=== PATIENT | male | born 1945 | race African-American/Black ===

== ENCOUNTER 2017-03-05 01:49 | Inpatient (IN) | payer OTHER ==
[2017-03-05] VITALS (12 sets, daily range): BP systolic 0–120; BP diastolic 0–85
[~2017-03-05] VITALS: Ht 165.1 cm; Wt 61.0 kg
[2017-03-05 02:05] LABS: BASE EXCESS -10.4 mEq/L (-3 to +3); BICARBONATE 12.4 mEq/L (22-26); CARBOXY HGB 2.2 % (0-5); COMMENTS - BLOOD GASES C+A+; DEVICE 840 VENT; FI02 60 %; METHEMOGLOBIN 1.2 % (0-1.5); PCO2 20 mm Hg (35-45); PO2 235 mm Hg (80-100); SITE LR
[2017-03-05 02:06] LABS: MODE SPONT NIPPV; PEEP 5 CM/H20; PRES. SUPPORT 10 CM/H2O; TOTAL RESP RATE 54 resp/min
[2017-03-05 02:16] LABS: POTASSIUM 3.8 mEq/L (3.7-5.4)
[2017-03-05 02:37] LABS: ADD MIUA? YES; BILIRUBIN NEGATIVE; BLOOD LARGE; COLOR YELLOW ((YELLOW)); GLUCOSE (STRIP) NEGATIVE; KETONES NEGATIVE; LEUKOCYTES LARGE; NITRITE NEGATIVE; PROTEIN (STRIP) 100; SPECIFIC GRAVITY 1.005 (1.000-1.030); UROBILINOGEN 0.2 MG/DL (0.2-1.0)
[2017-03-05 02:40] LABS: INTER. NORMALIZED RATIO 1.4; PROTHROMBIN TIME 14.3 (9.2-11.2); PTT 26.9 (25-32)
[2017-03-05 02:42] LABS: CHLORIDE 106 mEq/L (99-109); EOSINOPHIL (%) 0 % (0-5); HEMATOCRIT 35.9 % (38.0-50.0); IMMATURE GRANULOCYTE (%) 0.4 % (0.0-0.7); IMMATURE GRANULOCYTE COUNT 0.1 K/uL; INSTRUMENT ABS NEUTROPHIL CT 19.1 K/uL; LYMPHOCYTE COUNT 1.3 K/uL (1.0-2.8); MCH 21.9 PG (29.0-34.0); MCHC 31.5 G/DL (30.0-36.0); MCV 69.7 FL (86-99); MONOCYTE (%) 1.2 % (3-12); MONOCYTE COUNT 0.3 K/uL (0-0.8); NEUTROPHIL (%) 91.8 % (45-76); NEUTROPHIL COUNT 19.1 K/uL (1.8-6.4); NRBC (%) 0.1 /100 WBC (0-0); PLATELET COUNT 319 K/uL (156-360); RBC DIS.WIDTH-CV 22.4 % (11.8-14.6); RBC DIS.WIDTH-SD 52.1 % (39-53); RED BLOOD COUNT 5.15 M/uL (4.00-5.50); SODIUM 140 mEq/L (136-147); WHITE BLOOD COUNT 20.8 K/uL (4.1-10.2)
[2017-03-05 02:44] LABS: GLUCOSE 136 mg/dL (70-99)
[2017-03-05 02:45] LABS: ANION GAP 21 MEQ/L (2-14)
[2017-03-05 02:46] LABS: TOTAL BILIRUBIN 1.2 mg/dL (0.0-1.0)
[2017-03-05 02:47] LABS: ALKALINE PHOSPHATASE 116 IU/L (3-129)
[2017-03-05 02:48] LABS: GFR ESTIMATE (CALCULATED) > 59 mL/min/
[2017-03-05 02:49] LABS: UREA NITROGEN (BUN) 9 mg/dL (9-23)
[2017-03-05 02:51] LABS: LIPASE 31 U/L (1.0-51.0)
[2017-03-05 02:57] LABS: TROP-I INTERPRETATION NEGATIVE; TROPONIN-I 0.06 ng/mL (0.0-0.30)
[2017-03-05 02:57] LABS: EPITHELIAL CELLS 1+ /HPF; MUCUS NONE SEEN /LPF; RED BLOOD CELLS TNTC /HPF (0-5); WHITE BLOOD CELLS 30-40 /HPF (0-5)
[2017-03-05 02:58] LABS: BACTERIA 2+ /HPF; UCUL ADDED? YES
[2017-03-05 06:20] LABS: HEMATOCRIT 28.9 % (38.0-50.0); MCH 22.2 PG (29.0-34.0); MCHC 33.6 G/DL (30.0-36.0); MCV 66.3 FL (86-99); NRBC (%) 0.2 /100 WBC (0-0); PLATELET COUNT 243 K/uL (156-360); RBC DIS.WIDTH-CV 20.9 % (11.8-14.6); RBC DIS.WIDTH-SD 46.6 % (39-53); RED BLOOD COUNT 4.36 M/uL (4.00-5.50); WHITE BLOOD COUNT 18.6 K/uL (4.1-10.2)
[2017-03-05 06:35] LABS: INTER. NORMALIZED RATIO 1.6; PROTHROMBIN TIME 16.1 (9.2-11.2)
[2017-03-05 06:43] LABS: TROP-I INTERPRETATION NEGATIVE; TROPONIN-I 0.08 ng/mL (0.0-0.30)
[2017-03-05 06:47] LABS: METH RESISTANT S AUREUS PCR NEGATIVE (NEGATIVE)
[2017-03-05 06:50] LABS: PROBE CHECK PASS; SPECIMEN PROCESSING CONTROL PASS
[2017-03-05] MEDS ORDERED: NICODERM CQ1 EAC2 TD (10:45)
[2017-03-05] MEDS ORDERED: ELIQUIS5 MG PO (10:46)
[2017-03-05] MEDS ORDERED: FLOMAX0.4 MG PO (10:46)
[2017-03-05] MEDS ORDERED: THIAMINE HCL100 MG PO (10:47)
[2017-03-05] MEDS ORDERED: LASIX40 MG PO (10:48)
[2017-03-05] MEDS ORDERED: METOPROLOL TART25 MG PO (10:48)
[2017-03-05] MEDS ORDERED: VITAMIN D31000 UNIT PO (10:48)
[2017-03-05] MEDS ORDERED: LIPITOR40 MG PO (10:55)
[2017-03-05] MEDS ORDERED: NITROSTAT0.4 MG SL (10:55)
[2017-03-05 11:01] LABS: TROP-I INTERPRETATION NEGATIVE; TROPONIN-I 0.08 ng/mL (0.0-0.30)
[2017-03-05 11:05] LABS: INTER. NORMALIZED RATIO 1.6
[2017-03-05 11:15] LABS: PTT 93.7 (25-32)
[2017-03-06] VITALS (8 sets, daily range): BP systolic 0–133; BP diastolic 0–82
[2017-03-06 06:28] LABS: HEMATOCRIT 28.9 % (38.0-50.0); MCH 21.9 PG (29.0-34.0); MCHC 32.9 G/DL (30.0-36.0); MCV 66.7 FL (86-99); PLATELET COUNT 234 K/uL (156-360); RBC DIS.WIDTH-CV 21.2 % (11.8-14.6); RBC DIS.WIDTH-SD 47.3 % (39-53); RED BLOOD COUNT 4.33 M/uL (4.00-5.50)
[2017-03-06 06:48] LABS: ALKALINE PHOSPHATASE 73 IU/L (3-129); ANION GAP 13 MEQ/L (2-14); CHLORIDE 105 MEQ/L (99-109); GFR ESTIMATE (CALCULATED) > 59 mL/min/; GLUCOSE 139 mg/dL (70-99); POTASSIUM 3.5 MEQ/L (3.7-5.4); SAMPLE HEMOLYSIS CHECK 0; SAMPLE ICTERIC CHECK 0; SAMPLE LIPEMIA CHECK 0; SODIUM 139 MEQ/L (136-147); TOTAL BILIRUBIN 1.2 MG/DL (0.0-1.0); UREA NITROGEN (BUN) 18 mg/dL (9-23)
[2017-03-07 03:22] VITALS: BP 142/96
[2017-03-07 07:23] LABS: EOSINOPHIL (%) 1.1 % (0-5); EOSINOPHIL COUNT 0.1 K/uL (0-0.3); HEMATOCRIT 30.4 % (38.0-50.0); IMMATURE GRANULOCYTE (%) 0.5 % (0.0-0.7); INSTRUMENT ABS NEUTROPHIL CT 4.2 K/uL; LYMPHOCYTE COUNT 1.4 K/uL (1.0-2.8); MCH 22.5 PG (29.0-34.0); MCHC 33.2 G/DL (30.0-36.0); MCV 67.7 FL (86-99); MONOCYTE (%) 9.3 % (3-12); MONOCYTE COUNT 0.6 K/uL (0-0.8); NEUTROPHIL (%) 67.1 % (45-76); NEUTROPHIL COUNT 4.2 K/uL (1.8-6.4); NRBC (%) 0.5 /100 WBC (0-0); PLATELET COUNT 245 K/uL (156-360); RBC DIS.WIDTH-SD 49.1 % (39-53); RED BLOOD COUNT 4.49 M/uL (4.00-5.50)
[2017-03-07 07:30] LABS: WHITE BLOOD COUNT 6.2 K/uL (4.1-10.2)
[2017-03-07 07:38] LABS: ALKALINE PHOSPHATASE 89 IU/L (3-129); ANION GAP 13 MEQ/L (2-14); CHLORIDE 106 MEQ/L (99-109); GFR ESTIMATE (CALCULATED) > 59 mL/min/; GLUCOSE 170 mg/dL (70-99); POTASSIUM 3.6 MEQ/L (3.7-5.4); SAMPLE HEMOLYSIS CHECK 0; SAMPLE ICTERIC CHECK 0; SAMPLE LIPEMIA CHECK 0; SODIUM 140 MEQ/L (136-147); UREA NITROGEN (BUN) 15 mg/dL (9-23)
[2017-03-07 07:48] LABS: TOTAL BILIRUBIN 0.7 MG/DL (0.0-1.0)
[2017-03-07 09:06] VITALS: BP 124/71
[2017-03-07 12:32] VITALS: BP 142/86
[2017-03-07 16:00] VITALS: BP 123/68
[2017-03-07 22:00] VITALS: BP 126/82
[2017-03-08 00:48] VITALS: BP 113/79
[2017-03-08 05:05] VITALS: BP 126/81
[2017-03-08 07:13] LABS: ANION GAP 11 MEQ/L (2-14); CHLORIDE 105 MEQ/L (99-109); GFR ESTIMATE (CALCULATED) > 59 mL/min/; GLUCOSE 130 mg/dL (70-99); POTASSIUM 3.9 MEQ/L (3.7-5.4); SAMPLE HEMOLYSIS CHECK 0; SAMPLE ICTERIC CHECK 0; SAMPLE LIPEMIA CHECK 0; SODIUM 137 MEQ/L (136-147); UREA NITROGEN (BUN) 11 mg/dL (9-23)
[2017-03-08 07:43] LABS: EOSINOPHIL (%) 2.7 % (0-5); EOSINOPHIL COUNT 0.2 K/uL (0-0.3); HEMATOCRIT 31.2 % (38.0-50.0); IMMATURE GRANULOCYTE (%) 0.3 % (0.0-0.7); INSTRUMENT ABS NEUTROPHIL CT 3.6 K/uL; LYMPHOCYTE COUNT 1.6 K/uL (1.0-2.8); MCH 21.8 PG (29.0-34.0); MCHC 32.1 G/DL (30.0-36.0); MONOCYTE (%) 9.2 % (3-12); MONOCYTE COUNT 0.6 K/uL (0-0.8); NEUTROPHIL (%) 59.6 % (45-76); NEUTROPHIL COUNT 3.6 K/uL (1.8-6.4); NRBC (%) 0.5 /100 WBC (0-0); PLATELET COUNT 254 K/uL (156-360); RBC DIS.WIDTH-CV 22.6 % (11.8-14.6); RED BLOOD COUNT 4.59 M/uL (4.00-5.50)
[2017-03-08 08:11] VITALS: BP 123/80
[2017-03-08 16:00] VITALS: BP 125/79
[2017-03-08 22:00] VITALS: BP 138/90
[2017-03-09 00:51] VITALS: BP 131/92
[2017-03-09 05:08] VITALS: BP 128/82
[2017-03-09 07:00] VITALS: BP 132/86
[2017-03-09 07:09] LABS: ANION GAP 8 MEQ/L (2-14); CHLORIDE 104 MEQ/L (99-109); GFR ESTIMATE (CALCULATED) > 59 mL/min/; GLUCOSE 135 mg/dL (70-99); POTASSIUM 3.9 MEQ/L (3.7-5.4); SAMPLE HEMOLYSIS CHECK 0; SAMPLE ICTERIC CHECK 0; SAMPLE LIPEMIA CHECK 0; SODIUM 136 MEQ/L (136-147); UREA NITROGEN (BUN) 9 mg/dL (9-23)
[2017-03-09 07:28] LABS: HEMATOCRIT 30.9 % (38.0-50.0); MCH 22.1 PG (29.0-34.0); MCHC 32.4 G/DL (30.0-36.0); MCV 68.4 FL (86-99); NRBC (%) 0.3 /100 WBC (0-0); PLAT.SUFFICIENCY ADEQUATE; PLATELET COUNT 260 K/uL (156-360); RBC DIS.WIDTH-CV 22.4 % (11.8-14.6); RBC DIS.WIDTH-SD 51.1 % (39-53); RED BLOOD COUNT 4.52 M/uL (4.00-5.50); WHITE BLOOD COUNT 6.4 K/uL (4.1-10.2)
[2017-03-09 12:08] VITALS: BP 121/82
[2017-03-09 16:39] VITALS: BP 132/81
[2017-03-09 20:40] VITALS: BP 106/70
[2017-03-10] VITALS (7 sets, daily range): BP systolic 114–142; BP diastolic 73–90
[2017-03-10 06:27] LABS: MCH 21.7 PG (29.0-34.0); MCHC 31.9 G/DL (30.0-36.0); PLATELET COUNT 259 K/uL (156-360); RBC DIS.WIDTH-CV 22.9 % (11.8-14.6); RBC DIS.WIDTH-SD 51.2 % (39-53); RED BLOOD COUNT 4.56 M/uL (4.00-5.50)
[2017-03-10 07:35] LABS: ANION GAP 12 MEQ/L (2-14); CHLORIDE 104 MEQ/L (99-109); GFR ESTIMATE (CALCULATED) > 59 mL/min/; GLUCOSE 176 mg/dL (70-99); POTASSIUM 3.6 MEQ/L (3.7-5.4); SAMPLE HEMOLYSIS CHECK 0; SAMPLE ICTERIC CHECK 0; SAMPLE LIPEMIA CHECK 0; SODIUM 137 MEQ/L (136-147); UREA NITROGEN (BUN) 10 mg/dL (9-23)
[2017-03-11 00:45] VITALS: BP 110/68
[2017-03-11 04:04] VITALS: BP 115/70
[2017-03-11 06:49] LABS: ANION GAP 11 MEQ/L (2-14); CHLORIDE 104 MEQ/L (99-109); GFR ESTIMATE (CALCULATED) > 59 mL/min/; GLUCOSE 135 mg/dL (70-99); SAMPLE HEMOLYSIS CHECK 0; SAMPLE ICTERIC CHECK 0; SAMPLE LIPEMIA CHECK 0; SODIUM 139 MEQ/L (136-147); UREA NITROGEN (BUN) 11 mg/dL (9-23)
[2017-03-11 07:29] LABS: HEMATOCRIT 33.3 % (38.0-50.0); MCH 22.1 PG (29.0-34.0); MCHC 32.4 G/DL (30.0-36.0); MCV 68.1 FL (86-99); PLATELET COUNT 277 K/uL (156-360); RBC DIS.WIDTH-CV 22.5 % (11.8-14.6); RED BLOOD COUNT 4.89 M/uL (4.00-5.50); WHITE BLOOD COUNT 6.5 K/uL (4.1-10.2)
[2017-03-11 07:30] VITALS: BP 115/81
[2017-03-11 11:20] VITALS: BP 116/74
[2017-03-11 19:35] VITALS: BP 133/88
[2017-03-11 23:51] VITALS: BP 125/84
[2017-03-12 03:55] VITALS: BP 128/88
[2017-03-12 06:54] LABS: ANION GAP 10 MEQ/L (2-14); CHLORIDE 105 MEQ/L (99-109); GFR ESTIMATE (CALCULATED) > 59 mL/min/; GLUCOSE 137 mg/dL (70-99); POTASSIUM 4.1 MEQ/L (3.7-5.4); SAMPLE HEMOLYSIS CHECK 0; SAMPLE ICTERIC CHECK 0; SAMPLE LIPEMIA CHECK 0; SODIUM 140 MEQ/L (136-147); UREA NITROGEN (BUN) 13 mg/dL (9-23)
[2017-03-12 08:00] VITALS: BP 116/79
[2017-03-12 11:30] VITALS: BP 109/105
[2017-03-12] MEDS ORDERED: METRONIDAZOLE500 MG PO (11:58)
[2017-03-12] MEDS ORDERED: FINASTERIDE5 MG PO (12:00)
[2017-03-12] MEDS ORDERED: ASPIR-LOW81 MG PO (12:01)
[2017-03-12] MEDS ORDERED: XARELTO15 MG PO (12:22)
== END 2017-03-12 15:48 | disposition home health service (06) | DRG 871 ==
LOC: EME → EDBD 01:49 → EME 01:49 → 4EAST 03:53 → 4WEST 03:53 → EDOF 03:53 → 4WEST 04:40 → 4EAST 03-06 19:29
PROVIDERS: Emergency Medicine; Internal Medicine
DX: A40.9 Streptococcal sepsis, unspecified (principal); J96.00 Acute respiratory failure, unspecified whether with hypoxia or hypercapnia; I26.99 Other pulmonary embolism without acute cor pulmonale; J90 Pleural effusion, not elsewhere classified; B95.5 Unspecified streptococcus as the cause of diseases classified elsewhere; R33.9 Retention of urine, unspecified; N40.1 Benign prostatic hyperplasia with lower urinary tract symptoms; N39.0 Urinary tract infection, site not specified; I50.9 Heart failure, unspecified; I27.2 Other secondary pulmonary hypertension; T44.6X6A Underdosing of alpha-adrenoreceptor antagonists, initial encounter; Z91.128 Patient's intentional underdosing of medication regimen for other reason; J44.9 Chronic obstructive pulmonary disease, unspecified; Z86.718 Personal history of other venous thrombosis and embolism; Z79.01 Long term (current) use of anticoagulants; F17.210 Nicotine dependence, cigarettes, uncomplicated; N41.9 Inflammatory disease of prostate, unspecified; J18.0 Bronchopneumonia, unspecified organism; E87.2 Acidosis; E87.6 Hypokalemia; D64.9 Anemia, unspecified
CPT/HCPCS: 36600; 71010; 71275; 74177; 80047; 80048; 80053; 81003; 82803; 83605; 83690; 84484; 85025; 85027; 85610; 85730; 87040; 87076; 87086; 87106; 87185; 87641; 87801; 93005; 93306; 93970; 94002; 94010; 94640; 94640 76; 94760; 94799; 99202; 99281; 99285; J0692; J0696; J1940; J1956; J3260; J3370; J7050

== ENCOUNTER 2017-03-24 09:32 | Inpatient (IN) | payer OTHER ==
[~2017-03-24] VITALS: Ht 165.1 cm; Wt 55.6 kg
[~2017-03-24 09:32] MED LIST: ASPIR-LOW81 MG PO; ELIQUIS5 MG PO; FINASTERIDE5 MG PO; FLOMAX0.4 MG PO; LASIX40 MG PO; LIPITOR40 MG PO; METOPROLOL TART25 MG PO; METRONIDAZOLE500 MG PO; NICODERM CQ1 EAC2 TD; NITROSTAT0.4 MG SL; THIAMINE HCL100 MG PO; VITAMIN D31000 UNIT PO; XARELTO15 MG PO
[2017-03-24 10:34] LABS: CHLORIDE 109 mEq/L (99-109); SODIUM 137 mEq/L (136-147)
[2017-03-24 10:36] LABS: GLUCOSE 108 mg/dL (70-99)
[2017-03-24 10:37] LABS: ANION GAP 13 MEQ/L (2-14)
[2017-03-24 10:38] LABS: POTASSIUM 5.5 mEq/L (3.7-5.4)
[2017-03-24 10:40] LABS: GFR ESTIMATE (CALCULATED) > 59 mL/min/; UREA NITROGEN (BUN) 16 mg/dL (9-23)
[2017-03-24 10:40] LABS: HEMATOCRIT 36.5 % (38.0-50.0); MCH 22.3 PG (29.0-34.0); MCHC 32.3 G/DL (30.0-36.0); MCV 69.1 FL (86-99); RBC DIS.WIDTH-CV 23.3 % (11.8-14.6); RBC DIS.WIDTH-SD 53.1 % (39-53); RED BLOOD COUNT 5.28 M/uL (4.00-5.50); WHITE BLOOD COUNT 5.3 K/uL (4.1-10.2)
[2017-03-24 10:44] LABS: TROP-I INTERPRETATION NEGATIVE; TROPONIN-I 0.05 ng/mL (0.0-0.30)
[2017-03-24 11:11] LABS: PLAT.SUFFICIENCY ADEQUATE; PLATELET COUNT 283 K/uL (156-360)
[2017-03-24] MEDS ORDERED: XARELTO15 MG PO (12:06)
[2017-03-24 12:09] LABS: INTER. NORMALIZED RATIO 1.6; PROTHROMBIN TIME 16.2 (9.2-11.2); PTT 32.1 (25-32)
[2017-03-24 14:00] VITALS: BP 131/88
[2017-03-24 15:59] VITALS: BP 105/76
[2017-03-24 16:15] LABS: TROP-I INTERPRETATION NEGATIVE; TROPONIN-I 0.06 ng/mL (0.0-0.30)
[2017-03-24 17:35] LABS: AMPHETAMINES QUANT VALUE 0 NG/ML; BARBITUATES QUANT VALUE 0 NG/ML; BENZODIAZEPINES QUANT VALUE 0 NG/ML; BENZODIAZEPINES, URINE SCREEN Negative (200 ng/mL); MARIJUANA QUANT VALUE 0 NG/ML; OPIATES QUANTITATIVE VALUE 0 NG/ML; PHENCYCLIDINE QUANT VALUE 0 NG/ML
[2017-03-24 21:51] LABS: TROP-I INTERPRETATION NEGATIVE; TROPONIN-I 0.06 ng/mL (0.0-0.30)
[2017-03-24 23:22] VITALS: BP 104/77
[2017-03-25] VITALS (9 sets, daily range): BP systolic 86–114; BP diastolic 53–83
[2017-03-25 07:14] LABS: ANION GAP 12 MEQ/L (2-14); CHLORIDE 107 MEQ/L (99-109); GFR ESTIMATE (CALCULATED) > 59 mL/min/; GLUCOSE 85 mg/dL (70-99); POTASSIUM 4.9 MEQ/L (3.7-5.4); SAMPLE HEMOLYSIS CHECK 0; SAMPLE ICTERIC CHECK 0; SAMPLE LIPEMIA CHECK 0; SODIUM 136 MEQ/L (136-147); UREA NITROGEN (BUN) 19 mg/dL (9-23)
[2017-03-26 03:50] VITALS: BP 94/60
[2017-03-26 07:33] VITALS: BP 102/65
[2017-03-26 07:46] LABS: ANION GAP 11 MEQ/L (2-14); CHLORIDE 105 MEQ/L (99-109); GFR ESTIMATE (CALCULATED) > 59 mL/min/; GLUCOSE 103 mg/dL (70-99); SAMPLE HEMOLYSIS CHECK 0; SAMPLE ICTERIC CHECK 0; SAMPLE LIPEMIA CHECK 0; SODIUM 134 MEQ/L (136-147); UREA NITROGEN (BUN) 22 mg/dL (9-23)
[2017-03-26 11:09] VITALS: BP 101/68
[2017-03-26 15:09] VITALS: BP 90/64
[2017-03-26 17:44] LABS: ADD MIUA? YES; BILIRUBIN NEGATIVE; BLOOD MODERATE; COLOR YELLOW ((YELLOW)); GLUCOSE (STRIP) NEGATIVE; KETONES NEGATIVE; LEUKOCYTES MODERATE; NITRITE NEGATIVE; PROTEIN (STRIP) 30; UROBILINOGEN 0.2 MG/DL (0.2-1.0)
[2017-03-26 17:52] LABS: BACTERIA RARE /HPF; EPITHELIAL CELLS NONE SEEN /HPF; HYALINE CASTS 0-5 /LPF; MUCUS TRACE /LPF; RED BLOOD CELLS 20-30 /HPF (0-5); UCUL ADDED? NO
[2017-03-26 20:06] VITALS: BP 92/66
[2017-03-26 23:53] VITALS: BP 101/67
[2017-03-27 03:44] VITALS: BP 119/67
[2017-03-27 05:51] LABS: MCH 22.2 PG (29.0-34.0); MCHC 33.1 G/DL (30.0-36.0); MCV 67.3 FL (86-99); PLATELET COUNT 252 K/uL (156-360); RBC DIS.WIDTH-SD 49.8 % (39-53); RED BLOOD COUNT 5.35 M/uL (4.00-5.50)
[2017-03-27 05:52] LABS: WHITE BLOOD COUNT 6.9 K/uL (4.1-10.2)
[2017-03-27 05:53] LABS: ANION GAP 11 MEQ/L (2-14); CHLORIDE 102 MEQ/L (99-109); GFR ESTIMATE (CALCULATED) > 59 mL/min/; GLUCOSE 145 mg/dL (70-99); POTASSIUM 3.9 MEQ/L (3.7-5.4); SAMPLE HEMOLYSIS CHECK 0; SAMPLE ICTERIC CHECK 0; SAMPLE LIPEMIA CHECK 0; SODIUM 133 MEQ/L (136-147); UREA NITROGEN (BUN) 22 mg/dL (9-23)
[2017-03-27 08:23] VITALS: BP 146/81
[2017-03-27 12:18] VITALS: BP 149/92
[2017-03-27 15:58] VITALS: BP 132/80
[2017-03-27 20:43] VITALS: BP 99/68
[2017-03-27 22:35] VITALS: BP 92/65
[2017-03-28 04:10] VITALS: BP 85/52
[2017-03-28 08:00] VITALS: BP 130/81
[2017-03-28] MEDS ORDERED: DIGOXIN125 MCG PO (11:01)
[2017-03-28] MEDS ORDERED: XARELTO20 MG PO (11:02)
[2017-03-28] MEDS ORDERED: LISINOPRIL2.5 MG PO (11:02)
[2017-03-28 11:17] VITALS: BP 142/76
[2017-03-28 13:30] LABS: ADD MIUA? YES; BILIRUBIN NEGATIVE; BLOOD LARGE; COLOR AMBER ((YELLOW)); GLUCOSE (STRIP) NEGATIVE; KETONES NEGATIVE; LEUKOCYTES MODERATE; NITRITE NEGATIVE; PROTEIN (STRIP) 100; UROBILINOGEN 0.2 MG/DL (0.2-1.0)
[2017-03-28 13:48] LABS: RED BLOOD CELLS 20-30 /HPF (0-5)
[2017-03-28 13:49] LABS: CASTS PRESENT /LPF; EPITHELIAL CELLS 1+ /HPF; MUCUS NONE SEEN /LPF; UCUL ADDED? YES; WHITE BLOOD CELLS 30-40 /HPF (0-5)
[2017-03-28 13:50] LABS: BACTERIA 3+ /HPF
== END 2017-03-28 13:30 | disposition home or self-care (01) | DRG 292 ==
LOC: EME 09:32 → EDOF 11:46 → 5WEST 11:46 → EDOF 11:46 → 5WEST 12:39 → 5SOUTH 03-25 13:34 → 5WEST 03-25 13:34 → 5SOUTH 03-25 16:06
PROVIDERS: Emergency Medicine; Internal Medicine; Internal Medicine Cardiovascular Disease; Nurse Practitioner Adult Health
DX: I50.23 Acute on chronic systolic (congestive) heart failure (principal); I42.0 Dilated cardiomyopathy; E87.2 Acidosis; F17.210 Nicotine dependence, cigarettes, uncomplicated; R33.9 Retention of urine, unspecified; I27.2 Other secondary pulmonary hypertension; I44.4 Left anterior fascicular block; I51.7 Cardiomegaly; R00.0 Tachycardia, unspecified; J44.9 Chronic obstructive pulmonary disease, unspecified; N40.0 Benign prostatic hyperplasia without lower urinary tract symptoms; K59.00 Constipation, unspecified; F10.10 Alcohol abuse, uncomplicated; Z86.718 Personal history of other venous thrombosis and embolism; Z86.711 Personal history of pulmonary embolism; Z81.1 Family history of alcohol abuse and dependence; Z88.0 Allergy status to penicillin; Z80.0 Family history of malignant neoplasm of digestive organs; Z09 Encounter for follow-up examination after completed treatment for conditions other than malignant neoplasm
CPT/HCPCS: 71020; 80048; 80306 90; 81003; 83880; 84484; 85027; 85610; 85730; 87086; 93005; 99281; 99285; G0103; G0378; J0696; J1940; J2270; J7040; J7050

== ENCOUNTER 2017-04-27 17:15 | Inpatient (IN) | payer OTHER ==
[~2017-04-27] VITALS: Ht 165.1 cm; Wt 49.0 kg
[~2017-04-27 17:15] MED LIST changes: +DIGOXIN125 MCG PO; +LISINOPRIL2.5 MG PO; +XARELTO20 MG PO
[2017-04-27 19:09] LABS: CHLORIDE 104 mEq/L (99-109); POTASSIUM 5.2 mEq/L (3.7-5.4); SODIUM 137 mEq/L (136-147)
[2017-04-27 19:11] LABS: GLUCOSE 100 mg/dL (70-99)
[2017-04-27 19:12] LABS: ANION GAP 21 MEQ/L (2-14)
[2017-04-27 19:13] LABS: TOTAL BILIRUBIN 0.7 mg/dL (0.0-1.0)
[2017-04-27 19:15] LABS: ALKALINE PHOSPHATASE 64 IU/L (3-129); GFR ESTIMATE (CALCULATED) 8 mL/min/
[2017-04-27 19:21] LABS: EOSINOPHIL (%) 0.1 % (0-5); HEMATOCRIT 40.8 % (38.0-50.0); IMMATURE GRANULOCYTE (%) 0.5 % (0.0-0.7); IMMATURE GRANULOCYTE COUNT 0.1 K/uL; INSTRUMENT ABS NEUTROPHIL CT 8.7 K/uL; MCH 21.9 PG (29.0-34.0); MCHC 33.6 G/DL (30.0-36.0); MCV 65.2 FL (86-99); MONOCYTE (%) 8.4 % (3-12); MONOCYTE COUNT 0.9 K/uL (0-0.8); NEUTROPHIL (%) 81.5 % (45-76); NEUTROPHIL COUNT 8.7 K/uL (1.8-6.4); PLATELET COUNT 273 K/uL (156-360); RBC DIS.WIDTH-CV 21.8 % (11.8-14.6); RBC DIS.WIDTH-SD 45.7 % (39-53); RED BLOOD COUNT 6.26 M/uL (4.00-5.50); TROP-I INTERPRETATION NEGATIVE; TROPONIN-I 0.21 ng/mL (0.0-0.30); WHITE BLOOD COUNT 10.6 K/uL (4.1-10.2)
[2017-04-27 19:33] LABS: UREA NITROGEN (BUN) 151 mg/dL (9-23)
[2017-04-27 19:51] LABS: LIPASE 125 U/L (1.0-51.0)
[2017-04-27] MEDS ORDERED: FINASTERIDE5 MG PO (19:59)
[2017-04-27] MEDS ORDERED: METRONIDAZOLE500 MG PO (19:59)
[2017-04-27] MEDS ORDERED: TAMSULOSIN HCL0.4 MG PO (19:59)
[2017-04-27] MEDS ORDERED: AMOX TR-K CLV1 EAC4 PO (20:00)
[2017-04-27] MEDS ORDERED: URIBEL CAPSULE1 EACH PO (20:00)
[2017-04-27] MEDS ORDERED: DAILY VITE1 EAC1 PO (20:01)
[2017-04-27 20:45] LABS: ADD MIUA? YES; BILIRUBIN NEGATIVE; BLOOD MODERATE; COLOR YELLOW ((YELLOW)); GLUCOSE (STRIP) NEGATIVE; KETONES NEGATIVE; LEUKOCYTES LARGE; NITRITE NEGATIVE; PROTEIN (STRIP) NEGATIVE; SPECIFIC GRAVITY 1.008 (1.000-1.030); UROBILINOGEN 0.2 MG/DL (0.2-1.0)
[2017-04-27 21:09] LABS: BACTERIA RARE /HPF; EPITHELIAL CELLS NONE SEEN /HPF; MUCUS TRACE /LPF; RED BLOOD CELLS 0-5 /HPF (0-5); UCUL ADDED? NO; WHITE BLOOD CELLS 30-40 /HPF (0-5); WHITE BLOOD CELLS CLUMP OCC /HPF (0-5)
[2017-04-28 00:56] LABS: INTER. NORMALIZED RATIO 1.4; PROTHROMBIN TIME 14.7 (9.2-11.2)
[2017-04-28 05:45] LABS: SODIUM 142 mEq/L (136-147)
[2017-04-28 05:46] LABS: GLUCOSE 109 mg/dL (70-99)
[2017-04-28 05:48] LABS: ANION GAP 13 MEQ/L (2-14)
[2017-04-28 05:51] LABS: HEMATOCRIT 34.4 % (38.0-50.0); MCV 64.5 FL (86-99); PLATELET COUNT 252 K/uL (156-360); RBC DIS.WIDTH-CV 21.1 % (11.8-14.6); RBC DIS.WIDTH-SD 43.9 % (39-53); RED BLOOD COUNT 5.33 M/uL (4.00-5.50); WHITE BLOOD COUNT 7.3 K/uL (4.1-10.2)
[2017-04-28 05:54] LABS: TROP-I INTERPRETATION NEGATIVE
[2017-04-28 06:00] LABS: GFR ESTIMATE (CALCULATED) 14 mL/min/; UREA NITROGEN (BUN) 116 mg/dL (9-23)
[2017-04-28 06:01] LABS: CHLORIDE 115 mEq/L (99-109)
[2017-04-28 13:23] VITALS: BP 91/55
[2017-04-28 14:56] VITALS: BP 95/62
[2017-04-28 21:09] VITALS: BP 105/65
[2017-04-29 00:23] VITALS: BP 100/61
[2017-04-29 06:46] LABS: EOSINOPHIL (%) 2.2 % (0-5); EOSINOPHIL COUNT 0.1 K/uL (0-0.3); HEMATOCRIT 32.2 % (38.0-50.0); IMMATURE GRANULOCYTE (%) 0.5 % (0.0-0.7); INSTRUMENT ABS NEUTROPHIL CT 4.2 K/uL; MCH 21.5 PG (29.0-34.0); MCV 67.4 FL (86-99); MONOCYTE COUNT 0.9 K/uL (0-0.8); NEUTROPHIL (%) 66.4 % (45-76); NEUTROPHIL COUNT 4.2 K/uL (1.8-6.4); PLATELET COUNT 223 K/uL (156-360); RBC DIS.WIDTH-CV 21.5 % (11.8-14.6); RBC DIS.WIDTH-SD 47.3 % (39-53); RED BLOOD COUNT 4.78 M/uL (4.00-5.50); WHITE BLOOD COUNT 6.4 K/uL (4.1-10.2)
[2017-04-29 07:03] LABS: ANION GAP 11 MEQ/L (2-14); CHLORIDE 114 MEQ/L (99-109); GLUCOSE 99 mg/dL (70-99); POTASSIUM 4.4 MEQ/L (3.7-5.4); SAMPLE HEMOLYSIS CHECK 1; SAMPLE ICTERIC CHECK 0; SAMPLE LIPEMIA CHECK 0; SODIUM 142 MEQ/L (136-147)
[2017-04-29 07:05] LABS: GFR ESTIMATE (CALCULATED) 51 mL/min/; UREA NITROGEN (BUN) 54 mg/dL (9-23)
[2017-04-29 07:15] VITALS: BP 110/67
[2017-04-29 14:55] VITALS: BP 100/63
[2017-04-29 19:15] VITALS: BP 103/72
[2017-04-29 23:30] VITALS: BP 91/58
[2017-04-30 03:55] VITALS: BP 107/70
[2017-04-30 06:52] LABS: BASOPHIL COUNT 0.1 K/uL (0-0.1); EOSINOPHIL COUNT 0.2 K/uL (0-0.3); HEMATOCRIT 31.7 % (38.0-50.0); IMMATURE GRANULOCYTE (%) 0.5 % (0.0-0.7); LYMPHOCYTE COUNT 1.4 K/uL (1.0-2.8); MCH 21.8 PG (29.0-34.0); MCHC 33.1 G/DL (30.0-36.0); MCV 65.9 FL (86-99); MONOCYTE (%) 10.2 % (3-12); MONOCYTE COUNT 0.6 K/uL (0-0.8); NEUTROPHIL (%) 63.7 % (45-76); PLATELET COUNT 210 K/uL (156-360); RBC DIS.WIDTH-CV 21.1 % (11.8-14.6); RBC DIS.WIDTH-SD 45.7 % (39-53); RED BLOOD COUNT 4.81 M/uL (4.00-5.50); WHITE BLOOD COUNT 6.3 K/uL (4.1-10.2)
[2017-04-30 07:12] VITALS: BP 112/80
[2017-04-30 07:21] LABS: ANION GAP 9 MEQ/L (2-14); CHLORIDE 112 MEQ/L (99-109); GLUCOSE 133 mg/dL (70-99); SAMPLE HEMOLYSIS CHECK 0; SAMPLE ICTERIC CHECK 0; SAMPLE LIPEMIA CHECK 0; SODIUM 141 MEQ/L (136-147); UREA NITROGEN (BUN) 27 mg/dL (9-23)
[2017-04-30 07:24] LABS: GFR ESTIMATE (CALCULATED) > 59 mL/min/; POTASSIUM 3.5 MEQ/L (3.7-5.4)
[2017-04-30] MEDS ORDERED: XARELTO20 MG PO (08:53)
[2017-04-30 10:41] VITALS: BP 107/80
[2017-04-30 14:19] LABS: C DIFF TOXIN NEGATIVE (NEGATIVE)
[2017-04-30 14:20] LABS: PROBE CHECK PASS; SPECIMEN PROCESSING CONTROL PASS
[2017-04-30 16:13] VITALS: BP 99/67
[2017-04-30 19:08] VITALS: BP 103/73
[2017-04-30 22:58] VITALS: BP 99/69
[2017-05-01 06:59] LABS: HEMATOCRIT 31.8 % (38.0-50.0); MCH 22.4 PG (29.0-34.0); MCHC 34.3 G/DL (30.0-36.0); MCV 65.4 FL (86-99); RBC DIS.WIDTH-CV 21.6 % (11.8-14.6); RBC DIS.WIDTH-SD 45.9 % (39-53); RED BLOOD COUNT 4.86 M/uL (4.00-5.50); WHITE BLOOD COUNT 6.9 K/uL (4.1-10.2)
[2017-05-01 07:22] VITALS: BP 120/88
[2017-05-01 07:25] LABS: ANION GAP 11 MEQ/L (2-14); CHLORIDE 109 MEQ/L (99-109); GFR ESTIMATE (CALCULATED) > 59 mL/min/; GLUCOSE 100 mg/dL (70-99); SAMPLE HEMOLYSIS CHECK 0; SAMPLE ICTERIC CHECK 0; SAMPLE LIPEMIA CHECK 0; SODIUM 140 MEQ/L (136-147); UREA NITROGEN (BUN) 19 mg/dL (9-23)
[2017-05-01 07:32] LABS: POTASSIUM 4.5 MEQ/L (3.7-5.4)
[2017-05-01 07:43] LABS: PLAT.SUFFICIENCY ADEQUATE; PLATELET COUNT 226 K/uL (156-360)
[2017-05-01 11:24] VITALS: BP 105/76
[2017-05-01 16:00] VITALS: BP 107/73
[2017-05-01 16:12] VITALS: BP 119/62
[2017-05-01 20:15] VITALS: BP 106/75
[2017-05-02 00:15] VITALS: BP 105/73
[2017-05-02 07:00] VITALS: BP 106/75
[2017-05-02 07:58] LABS: EOSINOPHIL (%) 0.8 % (0-5); EOSINOPHIL COUNT 0.1 K/uL (0-0.3); IMMATURE GRANULOCYTE (%) 0.4 % (0.0-0.7); INSTRUMENT ABS NEUTROPHIL CT 4.7 K/uL; LYMPHOCYTE COUNT 1.9 K/uL (1.0-2.8); MCH 22.6 PG (29.0-34.0); MCHC 34.5 G/DL (30.0-36.0); MCV 65.5 FL (86-99); MONOCYTE (%) 7.6 % (3-12); MONOCYTE COUNT 0.6 K/uL (0-0.8); NEUTROPHIL (%) 64.9 % (45-76); NEUTROPHIL COUNT 4.7 K/uL (1.8-6.4); PLATELET COUNT 218 K/uL (156-360); RBC DIS.WIDTH-CV 21.9 % (11.8-14.6); RBC DIS.WIDTH-SD 47.2 % (39-53); RED BLOOD COUNT 5.04 M/uL (4.00-5.50); WHITE BLOOD COUNT 7.2 K/uL (4.1-10.2)
[2017-05-02 08:09] LABS: ANION GAP 13 MEQ/L (2-14); CHLORIDE 107 MEQ/L (99-109); GFR ESTIMATE (CALCULATED) > 59 mL/min/; GLUCOSE 97 mg/dL (70-99); POTASSIUM 4.2 MEQ/L (3.7-5.4); SAMPLE HEMOLYSIS CHECK 0; SAMPLE ICTERIC CHECK 0; SAMPLE LIPEMIA CHECK 0; SODIUM 138 MEQ/L (136-147); UREA NITROGEN (BUN) 21 mg/dL (9-23)
[2017-05-02 08:14] LABS: MAGNESIUM 1.7 mg/dl (1.3-2.7)
[2017-05-02 11:15] VITALS: BP 105/73
[2017-05-02 20:13] VITALS: BP 102/74
[2017-05-03] VITALS (8 sets, daily range): BP systolic 90–114; BP diastolic 50–74
[2017-05-03 07:43] LABS: EOSINOPHIL (%) 1.5 % (0-5); EOSINOPHIL COUNT 0.1 K/uL (0-0.3); HEMATOCRIT 31.3 % (38.0-50.0); IMMATURE GRANULOCYTE (%) 0.3 % (0.0-0.7); INSTRUMENT ABS NEUTROPHIL CT 4.4 K/uL; LYMPHOCYTE COUNT 1.5 K/uL (1.0-2.8); MCH 22.5 PG (29.0-34.0); MCHC 34.2 G/DL (30.0-36.0); MCV 65.8 FL (86-99); MONOCYTE (%) 8.3 % (3-12); MONOCYTE COUNT 0.5 K/uL (0-0.8); NEUTROPHIL (%) 67.2 % (45-76); NEUTROPHIL COUNT 4.4 K/uL (1.8-6.4); PLATELET COUNT 208 K/uL (156-360); RBC DIS.WIDTH-SD 45.1 % (39-53); RED BLOOD COUNT 4.76 M/uL (4.00-5.50); WHITE BLOOD COUNT 6.5 K/uL (4.1-10.2)
[2017-05-03 07:51] LABS: ANION GAP 9 MEQ/L (2-14); CHLORIDE 105 MEQ/L (99-109); GFR ESTIMATE (CALCULATED) > 59 mL/min/; POTASSIUM 4.1 MEQ/L (3.7-5.4); SAMPLE HEMOLYSIS CHECK 0; SAMPLE ICTERIC CHECK 0; SAMPLE LIPEMIA CHECK 0; SODIUM 134 MEQ/L (136-147); UREA NITROGEN (BUN) 24 mg/dL (9-23)
[2017-05-03 07:52] LABS: GLUCOSE 152 mg/dL (70-99)
[2017-05-03 10:39] LABS: MAGNESIUM 1.4 mg/dl (1.3-2.7)
[2017-05-04 01:07] LABS: TROP-I INTERPRETATION INDETERMINATE; TROPONIN-I 0.45 ng/mL (0.0-0.30)
[2017-05-04 01:14] LABS: CHLORIDE 106 mEq/L (99-109); POTASSIUM 4.3 mEq/L (3.7-5.4); SODIUM 133 mEq/L (136-147)
[2017-05-04 01:18] LABS: ANION GAP 8 MEQ/L (2-14)
[2017-05-04 01:20] LABS: GFR ESTIMATE (CALCULATED) > 59 mL/min/
[2017-05-04 01:21] LABS: UREA NITROGEN (BUN) 24 mg/dL (9-23)
[2017-05-04 01:40] LABS: GLUCOSE 109 mg/dL (70-99)
[2017-05-04 01:41] LABS: MAGNESIUM 0.8 mg/dL (1.3-2.7)
[2017-05-04 03:49] VITALS: BP 95/68
[2017-05-04 06:06] LABS: EOSINOPHIL (%) 1.1 % (0-5); EOSINOPHIL COUNT 0.1 K/uL (0-0.3); HEMATOCRIT 30.9 % (38.0-50.0); IMMATURE GRANULOCYTE (%) 0.6 % (0.0-0.7); INSTRUMENT ABS NEUTROPHIL CT 5.1 K/uL; LYMPHOCYTE COUNT 1.4 K/uL (1.0-2.8); MCH 22.6 PG (29.0-34.0); MCV 66.5 FL (86-99); MONOCYTE (%) 8.1 % (3-12); MONOCYTE COUNT 0.6 K/uL (0-0.8); NEUTROPHIL (%) 70.8 % (45-76); NEUTROPHIL COUNT 5.1 K/uL (1.8-6.4); PLATELET COUNT 186 K/uL (156-360); RBC DIS.WIDTH-CV 21.1 % (11.8-14.6); RBC DIS.WIDTH-SD 45.9 % (39-53); RED BLOOD COUNT 4.65 M/uL (4.00-5.50); WHITE BLOOD COUNT 7.2 K/uL (4.1-10.2)
[2017-05-04 06:21] LABS: ANION GAP 9 MEQ/L (2-14); CHLORIDE 106 MEQ/L (99-109); GFR ESTIMATE (CALCULATED) > 59 mL/min/; GLUCOSE 126 mg/dL (70-99); POTASSIUM 4.8 MEQ/L (3.7-5.4); SAMPLE HEMOLYSIS CHECK 0; SAMPLE ICTERIC CHECK 0; SAMPLE LIPEMIA CHECK 0; SODIUM 135 MEQ/L (136-147); UREA NITROGEN (BUN) 22 mg/dL (9-23)
[2017-05-04 07:12] VITALS: BP 98/66
[2017-05-04 10:24] LABS: TROP-I INTERPRETATION INDETERMINATE
[2017-05-04 17:07] VITALS: BP 94/68
[2017-05-04 19:36] VITALS: BP 100/71
[2017-05-04 23:26] VITALS: BP 98/68
[2017-05-05 03:11] VITALS: BP 101/64
[2017-05-05 07:03] LABS: EOSINOPHIL (%) 0.9 % (0-5); EOSINOPHIL COUNT 0.1 K/uL (0-0.3); HEMATOCRIT 29.2 % (38.0-50.0); IMMATURE GRANULOCYTE (%) 0.5 % (0.0-0.7); INSTRUMENT ABS NEUTROPHIL CT 3.8 K/uL; LYMPHOCYTE COUNT 1.3 K/uL (1.0-2.8); MCH 22.4 PG (29.0-34.0); MCHC 33.6 G/DL (30.0-36.0); MCV 66.8 FL (86-99); MONOCYTE (%) 8.8 % (3-12); MONOCYTE COUNT 0.5 K/uL (0-0.8); NEUTROPHIL COUNT 3.8 K/uL (1.8-6.4); PLATELET COUNT 162 K/uL (156-360); RBC DIS.WIDTH-CV 20.9 % (11.8-14.6); RBC DIS.WIDTH-SD 46.5 % (39-53); RED BLOOD COUNT 4.37 M/uL (4.00-5.50); WHITE BLOOD COUNT 5.6 K/uL (4.1-10.2)
[2017-05-05 07:15] VITALS: BP 97/71
[2017-05-05 07:25] LABS: ANION GAP 9 MEQ/L (2-14); CHLORIDE 107 MEQ/L (99-109); GFR ESTIMATE (CALCULATED) > 59 mL/min/; GLUCOSE 162 mg/dL (70-99); POTASSIUM 4.2 MEQ/L (3.7-5.4); SAMPLE HEMOLYSIS CHECK 0; SAMPLE ICTERIC CHECK 0; SAMPLE LIPEMIA CHECK 0; SODIUM 132 MEQ/L (136-147); UREA NITROGEN (BUN) 22 mg/dL (9-23)
[2017-05-05 10:47] VITALS: BP 105/78
[2017-05-05] MEDS ORDERED: NITROSTAT0.4 MG SL (11:45)
[2017-05-05] MEDS ORDERED: XARELTO20 MG PO (11:45)
[2017-05-05] MEDS ORDERED: DIGOXIN125 MCG PO (11:45)
[2017-05-05] MEDS ORDERED: METOPROLOL TART25 MG PO (11:45)
[2017-05-05] MEDS ORDERED: PANTOPRAZOLE SO40 MG PO (11:45)
[2017-05-05] MEDS ORDERED: TAMSULOSIN HCL0.4 MG PO (11:45)
[2017-05-05] MEDS ORDERED: FINASTERIDE5 MG PO (11:45)
[2017-05-05] MEDS ORDERED: LIPITOR40 MG PO (11:45)
[2017-05-05 16:00] VITALS: BP 99/73
[2017-05-05 20:18] VITALS: BP 107/73; BP 108/67
[2017-05-05 23:36] VITALS: BP 97/63
[2017-05-06 03:20] VITALS: BP 91/58
[2017-05-06 08:37] VITALS: BP 108/71
[2017-05-06 11:14] VITALS: BP 98/69
== END 2017-05-06 16:04 | disposition home or self-care (01) | DRG 683 ==
LOC: EME 17:15 → EDOF 23:07 → 5EAST 04-28 12:58
PROVIDERS: Emergency Medicine; Hospitalist; Internal Medicine; Internal Medicine Nephrology
DX: N17.9 Acute kidney failure, unspecified (principal); E87.8 Other disorders of electrolyte and fluid balance, not elsewhere classified; N39.0 Urinary tract infection, site not specified; E87.4 Mixed disorder of acid-base balance; R33.9 Retention of urine, unspecified; N13.9 Obstructive and reflux uropathy, unspecified; R00.0 Tachycardia, unspecified; N13.30 Unspecified hydronephrosis; R74.8 Abnormal levels of other serum enzymes; I50.9 Heart failure, unspecified; R63.4 Abnormal weight loss; R63.0 Anorexia; I42.0 Dilated cardiomyopathy; I50.22 Chronic systolic (congestive) heart failure; I11.0 Hypertensive heart disease with heart failure; E87.6 Hypokalemia; N40.1 Benign prostatic hyperplasia with lower urinary tract symptoms; E83.42 Hypomagnesemia; F17.200 Nicotine dependence, unspecified, uncomplicated; N41.9 Inflammatory disease of prostate, unspecified; J44.9 Chronic obstructive pulmonary disease, unspecified; E78.5 Hyperlipidemia, unspecified; N32.0 Bladder-neck obstruction; I49.9 Cardiac arrhythmia, unspecified; R91.1 Solitary pulmonary nodule; Z86.711 Personal history of pulmonary embolism; Z86.718 Personal history of other venous thrombosis and embolism; Z68.1 Body mass index [BMI] 19.9 or less, adult; Z79.82 Long term (current) use of aspirin; Z79.2 Long term (current) use of antibiotics; Z79.01 Long term (current) use of anticoagulants; Z87.440 Personal history of urinary (tract) infections; Z88.0 Allergy status to penicillin
CPT/HCPCS: 71020; 74176; 76770; 80048; 80048 91; 80053; 81003; 83605; 83690; 83735; 84100; 84484; 85025; 85027; 85610; 85730; 87040; 87086; 87493; 93005; 97530 GO; 99281; 99285; C9113; J0692; J0696; J2270; J2405; J2543; J3370; J3475; J7030; J7050

== ENCOUNTER 2017-05-28 07:16 | Inpatient (IN) | payer OTHER ==
[2017-05-28] VITALS (10 sets, daily range): BP systolic 108–130; BP diastolic 65–88
[~2017-05-28] VITALS: Ht 160 cm; Wt 56.9 kg
[~2017-05-28 07:16] MED LIST changes: +AMOX TR-K CLV1 EAC4 PO; +DAILY VITE1 EAC1 PO; +PANTOPRAZOLE SO40 MG PO; +TAMSULOSIN HCL0.4 MG PO; +URIBEL CAPSULE1 EACH PO
[2017-05-28 08:52] LABS: BASE EXCESS -25.4 mEq/L (-3 to +3); BICARBONATE 6.6 mEq/L (22-26); CARBOXY HGB 2.1 % (0-5); COMMENTS - BLOOD GASES A+C+; DEVICE 980; FI02 100 %; MECHANICAL RATE 16 resp/min; METHEMOGLOBIN 0.9 % (0-1.5); MODE AC; PCO2 33 mm Hg (35-45); PEEP 5 CM/H20; PO2 375 mm Hg (80-100); SITE LR; TIDAL VOLUME 400 ML; TOTAL RESP RATE 16 resp/min; pH 6.91 (7.35-7.45)
[2017-05-28 09:02] LABS: HEMATOCRIT 39.8 % (38.0-50.0); MCH 22.6 PG (29.0-34.0); MCHC 31.7 G/DL (30.0-36.0); NRBC (%) 0.7 /100 WBC (0-0); RBC DIS.WIDTH-CV 23.6 % (11.8-14.6); RBC DIS.WIDTH-SD 54.5 % (39-53); WHITE BLOOD COUNT 10.1 K/uL (4.1-10.2)
[2017-05-28 09:04] LABS: CHLORIDE 111 mEq/L (99-109); SODIUM 137 mEq/L (136-147)
[2017-05-28 09:08] LABS: ANION GAP 21 MEQ/L (2-14)
[2017-05-28 09:10] LABS: GFR ESTIMATE (CALCULATED) 45 mL/min/; MCV 71.3 FL (86-99); RED BLOOD COUNT 5.58 M/uL (4.00-5.50)
[2017-05-28 09:11] LABS: UREA NITROGEN (BUN) 24 mg/dL (9-23)
[2017-05-28 09:14] LABS: PLATELET COUNT 219 K/uL (156-360)
[2017-05-28 09:16] LABS: TROP-I INTERPRETATION NEGATIVE; TROPONIN-I 0.11 ng/mL (0.0-0.30)
[2017-05-28 09:23] LABS: GLUCOSE 25 mg/dL (70-99); POTASSIUM 6.2 mEq/L (3.7-5.4)
[2017-05-28 09:33] LABS: TOTAL BILIRUBIN 3.7 mg/dL (0.0-1.0)
[2017-05-28 09:34] LABS: ALKALINE PHOSPHATASE 139 IU/L (3-129)
[2017-05-28 09:46] LABS: POINT-OF-CARE METER ID UU13113702
[2017-05-28 10:28] LABS: POINT-OF-CARE METER ID UU13113702
[2017-05-28 10:40] LABS: CREATINE KINASE 187 IU/L (1-294); TOTAL CK 187 IU/L (1-294)
[2017-05-28 10:44] LABS: CK-MB 3.1 ng/mL (0.0-4.9)
[2017-05-28 12:08] LABS: POINT-OF-CARE METER ID UU13113702
[2017-05-28 12:42] LABS: ADD MIUA? YES; BILIRUBIN NEGATIVE; BLOOD SMALL; COLOR AMBER ((YELLOW)); GLUCOSE (STRIP) >=500; KETONES NEGATIVE; LEUKOCYTES TRACE; NITRITE NEGATIVE; PROTEIN (STRIP) >=500; SPECIFIC GRAVITY 1.014 (1.000-1.030); UROBILINOGEN 0.2 MG/DL (0.2-1.0)
[2017-05-28 12:53] LABS: BACTERIA NONE SEEN /HPF; CALCIUM OXALATE CRYSTALS 4+ /HPF; EPITHELIAL CELLS NONE SEEN /HPF; MUCUS NONE SEEN /LPF; RED BLOOD CELLS TNTC /HPF (0-5)
[2017-05-28 13:24] LABS: PROTHROMBIN TIME 79.1 SEC (10.2-12.9)
[2017-05-28 13:27] LABS: PTT 38.6 SEC (25-37)
[2017-05-28 13:28] LABS: INTER. NORMALIZED RATIO 6.7
[2017-05-28 13:42] LABS: POINT-OF-CARE METER ID UU13113702
[2017-05-28 14:47] LABS: VENOUS PCO2 37 mm Hg (41-51)
[2017-05-28] MEDS ORDERED: XARELTO20 MG PO (15:06)
[2017-05-28] MEDS ORDERED: METOPROLOL TART25 MG PO (15:08)
[2017-05-28] MEDS ORDERED: ASPIR-LOW81 MG PO (15:09)
[2017-05-28] MEDS ORDERED: METRONIDAZOLE500 MG PO (15:11)
[2017-05-28 16:41] LABS: CARBOXY HGB 2.5 % (0-5); COMMENTS - BLOOD GASES A+C+; DEVICE 980; FI02 50 %; MECHANICAL RATE 16 resp/min; METHEMOGLOBIN 1.3 % (0-1.5); MODE A/C; PCO2 35 mm Hg (35-45); PEEP 5 CM/H20; PO2 88 mm Hg (80-100); SITE RR; TIDAL VOLUME 400 ML; TOTAL RESP RATE 16 resp/min
[2017-05-28 16:42] LABS: pH < 6.90 (7.35-7.45)
[2017-05-28 16:44] LABS: METH RESISTANT S AUREUS PCR NEGATIVE (NEGATIVE)
[2017-05-28 16:46] LABS: PROBE CHECK PASS; SPECIMEN PROCESSING CONTROL PASS
[2017-05-28 17:29] LABS: MAGNESIUM 2.1 mg/dl (1.3-2.7)
[2017-05-28 17:55] LABS: EOSINOPHIL (%) 0 % (0-5); HEMATOCRIT 37.7 % (38.0-50.0); IMMATURE GRANULOCYTE (%) 1.6 % (0.0-0.7); IMMATURE GRANULOCYTE COUNT 0.3 K/uL; LYMPHOCYTE COUNT 0.9 K/uL (1.0-2.8); MCH 22.5 PG (29.0-34.0); MCHC 30.5 G/DL (30.0-36.0); MCV 73.9 FL (86-99); MONOCYTE (%) 4.6 % (3-12); MONOCYTE COUNT 0.9 K/uL (0-0.8); NEUTROPHIL (%) 89.1 % (45-76); NRBC (%) 0.7 /100 WBC (0-0); PLATELET COUNT 219 K/uL (156-360); RBC DIS.WIDTH-CV 24.2 % (11.8-14.6); RBC DIS.WIDTH-SD 60.6 % (39-53); WHITE BLOOD COUNT 20.2 K/uL (4.1-10.2)
[2017-05-28 18:17] LABS: CREATINE KINASE 143 IU/L (1-294); TOTAL CK 143 IU/L (1-294)
[2017-05-28 18:20] LABS: CK-MB 3.4 ng/mL (0.0-4.9); TROP-I INTERPRETATION NEGATIVE; TROPONIN-I 0.15 ng/mL (0.0-0.30)
[2017-05-28 18:25] LABS: ANION GAP 17 MEQ/L (2-14); CHLORIDE 116 MEQ/L (99-109); GFR ESTIMATE (CALCULATED) 45 mL/min/; POTASSIUM 5.6 MEQ/L (3.7-5.4); SAMPLE HEMOLYSIS CHECK 0; SAMPLE ICTERIC CHECK 0; SAMPLE LIPEMIA CHECK 0; SODIUM 140 MEQ/L (136-147); UREA NITROGEN (BUN) 27 mg/dL (9-23)
[2017-05-28 18:36] LABS: ADD MIUA? YES; BILIRUBIN NEGATIVE; BLOOD MODERATE; GLUCOSE (STRIP) 150; KETONES NEGATIVE; LEUKOCYTES SMALL; NITRITE NEGATIVE; PROTEIN (STRIP) >=500; SPECIFIC GRAVITY 1.018 (1.000-1.030); UROBILINOGEN 0.2 MG/DL (0.2-1.0)
[2017-05-28 18:41] LABS: SERUM ETHYL ALCOHOL < 10 mg/dL
[2017-05-28 18:44] LABS: GLUCOSE 227 mg/dL (70-99)
[2017-05-28 18:50] LABS: COLOR DK YELLOW ((YELLOW))
[2017-05-28 19:04] LABS: AMPHETAMINES QUANT VALUE 0 NG/ML; BARBITUATES QUANT VALUE 0 NG/ML; BENZODIAZEPINES QUANT VALUE 0 NG/ML; BENZODIAZEPINES, URINE SCREEN Negative (200 ng/mL); MARIJUANA QUANT VALUE 0 NG/ML; OPIATES QUANTITATIVE VALUE 0 NG/ML; PHENCYCLIDINE QUANT VALUE 0 NG/ML
[2017-05-28 19:27] LABS: UR CREATININE CONCENTRATION 20.3 MG/DL
[2017-05-28 19:34] LABS: CRYSTALS PRESENT; EPITHELIAL CELLS RARE /HPF; MUCUS NONE SEEN /LPF; RED BLOOD CELLS 15-20 /HPF (0-5)
[2017-05-28 19:35] LABS: BACTERIA 1+ /HPF; UCUL ADDED? NO
[2017-05-28 20:27] LABS: SALICYLATE < 3.0 MG/DL (15-30)
[2017-05-28 21:55] LABS: BASE EXCESS -14.9 mEq/L (-3 to +3); BICARBONATE 12.8 mEq/L (22-26); CARBOXY HGB 2.4 % (0-5); COMMENTS - BLOOD GASES C+; DEVICE VENT; FI02 40 %; MECHANICAL RATE 16 resp/min; METHEMOGLOBIN 1.7 % (0-1.5); MODE A/C; PCO2 36 mm Hg (35-45); PO2 67 mm Hg (80-100); PRES. SUPPORT 5 CM/H2O; SITE RR; TIDAL VOLUME 400 ML; TOTAL RESP RATE 16 resp/min; pH 7.16 (7.35-7.45)
[2017-05-28 23:56] LABS: ANION GAP 14 MEQ/L (2-14); CHLORIDE 117 MEQ/L (99-109); GFR ESTIMATE (CALCULATED) 45 mL/min/; POTASSIUM 5.5 MEQ/L (3.7-5.4); SAMPLE HEMOLYSIS CHECK 0; SAMPLE ICTERIC CHECK 0; SAMPLE LIPEMIA CHECK 0; SODIUM 139 MEQ/L (136-147); UREA NITROGEN (BUN) 27 mg/dL (9-23)
[2017-05-28 23:57] LABS: GLUCOSE 226 mg/dL (70-99)
[2017-05-29] VITALS (26 sets, daily range): BP systolic 77–142; BP diastolic 58–97
[2017-05-29 01:00] LABS: PTT 40.5 SEC (25-37)
[2017-05-29 01:04] LABS: PROTHROMBIN TIME 84.3 SEC (10.2-12.9)
[2017-05-29 01:07] LABS: CHLORIDE 109 mEq/L (99-109); SODIUM 137 mEq/L (136-147)
[2017-05-29 01:10] LABS: ANION GAP 16 MEQ/L (2-14)
[2017-05-29 01:12] LABS: GFR ESTIMATE (CALCULATED) 36 mL/min/
[2017-05-29 01:13] LABS: UREA NITROGEN (BUN) 27 mg/dL (9-23)
[2017-05-29 01:14] LABS: TROP-I INTERPRETATION NEGATIVE; TROPONIN-I 0.12 ng/mL (0.0-0.30)
[2017-05-29 01:15] LABS: CREATINE KINASE 117 IU/L (1-294); TOTAL CK 117 IU/L (1-294)
[2017-05-29 01:18] LABS: GLUCOSE 375 mg/dL (70-99); INTER. NORMALIZED RATIO 7.1; POTASSIUM 6.1 mEq/L (3.7-5.4)
[2017-05-29 01:20] LABS: CK-MB 3.4 ng/mL (0.0-4.9)
[2017-05-29 02:53] LABS: POINT-OF-CARE METER ID UU14162636
[2017-05-29 06:45] LABS: POINT-OF-CARE METER ID UU14208751
[2017-05-29 07:20] LABS: EOSINOPHIL (%) 0 % (0-5); HEMATOCRIT 29.9 % (38.0-50.0); IMMATURE GRANULOCYTE (%) 1.1 % (0.0-0.7); IMMATURE GRANULOCYTE COUNT 0.2 K/uL; INSTRUMENT ABS NEUTROPHIL CT 14.5 K/uL; LYMPHOCYTE COUNT 0.7 K/uL (1.0-2.8); MCH 23.2 PG (29.0-34.0); MCHC 34.1 G/DL (30.0-36.0); MONOCYTE (%) 2.6 % (3-12); MONOCYTE COUNT 0.4 K/uL (0-0.8); NEUTROPHIL (%) 92.1 % (45-76); NEUTROPHIL COUNT 14.5 K/uL (1.8-6.4); NRBC (%) 2.2 /100 WBC (0-0); PLATELET COUNT 179 K/uL (156-360); RBC DIS.WIDTH-CV 22.3 % (11.8-14.6); RBC DIS.WIDTH-SD 49.1 % (39-53); RED BLOOD COUNT 4.39 M/uL (4.00-5.50); WHITE BLOOD COUNT 15.7 K/uL (4.1-10.2)
[2017-05-29 07:24] LABS: MCV 68.1 FL (86-99)
[2017-05-29 07:38] LABS: CK-MB 4.2 ng/mL (0.0-4.9)
[2017-05-29 07:39] LABS: TROP-I INTERPRETATION NEGATIVE; TROPONIN-I 0.12 ng/mL (0.0-0.30)
[2017-05-29 07:45] LABS: ALKALINE PHOSPHATASE 72 IU/L (3-129); ANION GAP 19 MEQ/L (2-14); CHLORIDE 108 MEQ/L (99-109); CREATINE KINASE 130 IU/L (1-294); DIRECT BILIRUBIN 1.7 mg/dL (0.0-0.3); GFR ESTIMATE (CALCULATED) 40 mL/min/; GLUCOSE 383 mg/dL (70-99); SAMPLE HEMOLYSIS CHECK 0; SAMPLE ICTERIC CHECK 0; SAMPLE LIPEMIA CHECK 0; SODIUM 143 MEQ/L (136-147); TOTAL BILIRUBIN 2.3 MG/DL (0.0-1.0); TOTAL CK 130 IU/L (1-294); UREA NITROGEN (BUN) 28 mg/dL (9-23)
[2017-05-29 07:46] LABS: MAGNESIUM 1.3 mg/dl (1.3-2.7); POTASSIUM 4.3 MEQ/L (3.7-5.4)
[2017-05-29 09:57] LABS: AMYLASE 88 IU/L (1-118); LIPASE 90 U/L (1.0-51.0)
[2017-05-29 09:58] LABS: INTER. NORMALIZED RATIO 2.8; PROTHROMBIN TIME 31.9 SEC (10.2-12.9)
[2017-05-29 10:00] LABS: PTT 34.7 SEC (25-37)
[2017-05-29 10:30] LABS: COMMENTS - BLOOD GASES C+; DEVICE VENT; FI02 40 %; MODE SPONT; PRES. SUPPORT 12 CM/H2O; SITE LB; TOTAL RESP RATE 10 resp/min
[2017-05-29 10:31] LABS: CARBOXY HGB 2.1 % (0-5); CONTINUOUS POS AIRWAY PRESSURE 5 cm H2O; HEMOGLOBIN 11.1 (12.5-16.6); METHEMOGLOBIN 1.4 % (0-1.5); PCO2 50 mm Hg (35-45); PO2 64 mm Hg (80-100)
[2017-05-29 10:32] LABS: BASE EXCESS -8.5 mEq/L (-3 to +3); BICARBONATE 19.5 mEq/L (22-26)
[2017-05-29 10:34] LABS: HBSG INDEX 0.25; HPCA INDEX 0.06
[2017-05-29 10:35] LABS: ANTI-HEPATITIS B CORE (IGM) Nonreactive; HBC IgM INDEX 0.05
[2017-05-29 10:49] LABS: HIV INDEX 0.13; HIV-1/2 AB/AG COMBO Nonreactive
[2017-05-29 12:43] LABS: POINT-OF-CARE METER ID UU14208751
[2017-05-29 13:04] LABS: EOSINOPHIL (%) 0 % (0-5); HEMATOCRIT 31.8 % (38.0-50.0); IMMATURE GRANULOCYTE (%) 0.9 % (0.0-0.7); IMMATURE GRANULOCYTE COUNT 0.1 K/uL; INSTRUMENT ABS NEUTROPHIL CT 13.1 K/uL; LYMPHOCYTE COUNT 0.5 K/uL (1.0-2.8); MCHC 33.6 G/DL (30.0-36.0); MCV 68.4 FL (86-99); MONOCYTE (%) 3.2 % (3-12); MONOCYTE COUNT 0.5 K/uL (0-0.8); NEUTROPHIL (%) 92.1 % (45-76); NEUTROPHIL COUNT 13.1 K/uL (1.8-6.4); NRBC (%) 2.9 /100 WBC (0-0); PLATELET COUNT 175 K/uL (156-360); RBC DIS.WIDTH-CV 22.5 % (11.8-14.6); RED BLOOD COUNT 4.65 M/uL (4.00-5.50); WHITE BLOOD COUNT 14.3 K/uL (4.1-10.2)
[2017-05-29 13:19] LABS: CK-MB 4.3 ng/mL (0.0-4.9); TROP-I INTERPRETATION NEGATIVE; TROPONIN-I 0.11 ng/mL (0.0-0.30)
[2017-05-29 13:46] LABS: ANION GAP 17 MEQ/L (2-14); CHLORIDE 108 MEQ/L (99-109); CREATINE KINASE 138 IU/L (1-294); GFR ESTIMATE (CALCULATED) 48 mL/min/; GLUCOSE 218 mg/dL (70-99); POTASSIUM 3.9 MEQ/L (3.7-5.4); SAMPLE HEMOLYSIS CHECK 0; SAMPLE ICTERIC CHECK 0; SAMPLE LIPEMIA CHECK 0; SODIUM 142 MEQ/L (136-147); TOTAL CK 138 IU/L (1-294); UREA NITROGEN (BUN) 23 mg/dL (9-23)
[2017-05-29 13:47] LABS: MAGNESIUM 1.5 mg/dl (1.3-2.7)
[2017-05-29 15:46] LABS: BICARBONATE 20.6 mEq/L (22-26); METHEMOGLOBIN 1.2 % (0-1.5)
[2017-05-29 15:47] LABS: COMMENTS - BLOOD GASES C+; DEVICE VENT; FI02 40 %; MECHANICAL RATE 24 resp/min; MODE A/C; PCO2 31 mm Hg (35-45); PEEP 5 CM/H20; PO2 125 mm Hg (80-100); SITE RIGHT ALINE; TIDAL VOLUME 400 ML; TOTAL RESP RATE 27 resp/min; pH 7.43 (7.35-7.45)
[2017-05-29 18:04] LABS: POINT-OF-CARE METER ID UU14162636
[2017-05-29 19:13] LABS: ANION GAP 12 MEQ/L (2-14); CHLORIDE 109 MEQ/L (99-109); GFR ESTIMATE (CALCULATED) > 59 mL/min/; GLUCOSE 131 mg/dL (70-99); MAGNESIUM 1.6 mg/dl (1.3-2.7); POTASSIUM 3.9 MEQ/L (3.7-5.4); SAMPLE HEMOLYSIS CHECK 0; SAMPLE ICTERIC CHECK 0; SAMPLE LIPEMIA CHECK 0; SODIUM 140 MEQ/L (136-147); UREA NITROGEN (BUN) 18 mg/dL (9-23)
[2017-05-29 22:14] LABS: PROTEIN C FUNCTIONAL ACTIVITY+ 28 % (70-180)
[2017-05-30] VITALS: BP 113/78
[2017-05-30 00:08] LABS: POINT-OF-CARE METER ID UU14162636; POINT-OF-CARE USER ID LABHNS84
[2017-05-30 01:15] LABS: CHLORIDE 111 mEq/L (99-109); SODIUM 139 mEq/L (136-147)
[2017-05-30 01:16] LABS: MAGNESIUM 1.9 mg/dL (1.3-2.7)
[2017-05-30 01:19] LABS: ANION GAP 10 MEQ/L (2-14); GLUCOSE 96 mg/dL (70-99)
[2017-05-30 01:21] LABS: GFR ESTIMATE (CALCULATED) > 59 mL/min/
[2017-05-30 01:22] LABS: UREA NITROGEN (BUN) 13 mg/dL (9-23)
[2017-05-30 01:28] LABS: HEMATOCRIT 30.6 % (38.0-50.0); MCH 22.7 PG (29.0-34.0); MCV 66.8 FL (86-99); NRBC (%) 4.3 /100 WBC (0-0); RBC DIS.WIDTH-CV 22.2 % (11.8-14.6); RBC DIS.WIDTH-SD 47.1 % (39-53); RED BLOOD COUNT 4.58 M/uL (4.00-5.50); WHITE BLOOD COUNT 11.3 K/uL (4.1-10.2)
[2017-05-30 02:19] LABS: ABS NEUTROPHIL COUNT 10.4; ANISOCYTOSIS 2+; BURR CELLS 2+; EOSINOPHIL ABS CT 0.1; EOSINOPHILS 0.8 % (0-5.0); INSTRUMENT ABS NEUTROPHIL CT 10.2 K/uL; LYMPHOCYTES 6.1 % (15.0-45.0); MACROCYTES 2+; MICROCYTOSIS 1+; NUCLEATED RBC'S 3.5; OVALOCYTES 1+; PLAT.SUFFICIENCY DECREASED; PLATELET COUNT 172 K/uL (156-360); POIKILOCYTOSIS 3+; SCHISTOCYTES 2+; SEG.NEUTROPHILS 92.2 % (46.0-76.0); TEAR DROP CELLS 1+
[2017-05-30 06:13] LABS: POINT-OF-CARE METER ID UU13113731; POINT-OF-CARE USER ID LABHNS84
[2017-05-30 06:19] LABS: EOSINOPHIL (%) 0.3 % (0-5); HEMATOCRIT 30.1 % (38.0-50.0); IMMATURE GRANULOCYTE (%) 0.7 % (0.0-0.7); IMMATURE GRANULOCYTE COUNT 0.1 K/uL; INSTRUMENT ABS NEUTROPHIL CT 8.5 K/uL; LYMPHOCYTE COUNT 0.8 K/uL (1.0-2.8); MCH 23.1 PG (29.0-34.0); MCHC 34.2 G/DL (30.0-36.0); MCV 67.5 FL (86-99); MONOCYTE (%) 1.8 % (3-12); MONOCYTE COUNT 0.2 K/uL (0-0.8); NEUTROPHIL (%) 88.6 % (45-76); NEUTROPHIL COUNT 8.5 K/uL (1.8-6.4); NRBC (%) 3.7 /100 WBC (0-0); PLATELET COUNT 141 K/uL (156-360); RBC DIS.WIDTH-CV 22.4 % (11.8-14.6); RBC DIS.WIDTH-SD 49.1 % (39-53); RED BLOOD COUNT 4.46 M/uL (4.00-5.50); WHITE BLOOD COUNT 9.6 K/uL (4.1-10.2)
[2017-05-30 06:51] LABS: ANION GAP 8 MEQ/L (2-14); CHLORIDE 106 MEQ/L (99-109); GFR ESTIMATE (CALCULATED) > 59 mL/min/; GLUCOSE 101 mg/dL (70-99); SAMPLE HEMOLYSIS CHECK 0; SAMPLE ICTERIC CHECK 1; SAMPLE LIPEMIA CHECK 0; SODIUM 138 MEQ/L (136-147); UREA NITROGEN (BUN) 12 mg/dL (9-23)
[2017-05-30 07:00] VITALS: BP 101/60
[2017-05-30 08:00] VITALS: BP 101/60
[2017-05-30 08:10] LABS: BASE EXCESS -0.8 mEq/L (-3 to +3); BICARBONATE 23.4 mEq/L (22-26); CARBOXY HGB 2.1 % (0-5); METHEMOGLOBIN 1.3 % (0-1.5); PO2 143 mm Hg (80-100); pH 7.42 (7.35-7.45)
[2017-05-30 08:11] LABS: COMMENTS - BLOOD GASES C+; DEVICE 980; FI02 40 %; MECHANICAL RATE 20 resp/min; MODE A/C; PCO2 36 mm Hg (35-45); PEEP 5 CM/H20; SITE ALINE; TIDAL VOLUME 400 ML; TOTAL RESP RATE 20 resp/min
[2017-05-30 11:10] LABS: POINT-OF-CARE METER ID UU13113731
[2017-05-30 11:15] LABS: EOSINOPHIL (%) 0.4 % (0-5); HEMATOCRIT 31.5 % (38.0-50.0); IMMATURE GRANULOCYTE (%) 0.7 % (0.0-0.7); IMMATURE GRANULOCYTE COUNT 0.1 K/uL; INSTRUMENT ABS NEUTROPHIL CT 7.8 K/uL; LYMPHOCYTE COUNT 0.8 K/uL (1.0-2.8); MCH 22.6 PG (29.0-34.0); MCV 68.3 FL (86-99); MONOCYTE (%) 2.1 % (3-12); MONOCYTE COUNT 0.2 K/uL (0-0.8); NEUTROPHIL (%) 87.4 % (45-76); NEUTROPHIL COUNT 7.8 K/uL (1.8-6.4); NRBC (%) 3.9 /100 WBC (0-0); PLATELET COUNT 120 K/uL (156-360); RBC DIS.WIDTH-CV 22.9 % (11.8-14.6); RBC DIS.WIDTH-SD 50.5 % (39-53); RED BLOOD COUNT 4.61 M/uL (4.00-5.50); WHITE BLOOD COUNT 8.9 K/uL (4.1-10.2)
[2017-05-30 11:50] LABS: ANION GAP 10 MEQ/L (2-14); CHLORIDE 108 MEQ/L (99-109); GFR ESTIMATE (CALCULATED) > 59 mL/min/; GLUCOSE 98 mg/dL (70-99); SAMPLE HEMOLYSIS CHECK 0; SAMPLE ICTERIC CHECK 0; SAMPLE LIPEMIA CHECK 0; SODIUM 139 MEQ/L (136-147); UREA NITROGEN (BUN) 10 mg/dL (9-23)
[2017-05-30 18:00] VITALS: BP 100/62
[2017-05-30 19:00] VITALS: BP 100/68
[2017-05-30 19:13] LABS: ANION GAP 7 MEQ/L (2-14); CHLORIDE 107 MEQ/L (99-109); GFR ESTIMATE (CALCULATED) > 59 mL/min/; GLUCOSE 103 mg/dL (70-99); SAMPLE HEMOLYSIS CHECK 0; SAMPLE ICTERIC CHECK 0; SAMPLE LIPEMIA CHECK 0; SODIUM 138 MEQ/L (136-147); UREA NITROGEN (BUN) 9 mg/dL (9-23)
[2017-05-30 20:20] VITALS: BP 86/60
[2017-05-30 22:13] LABS: DIRECT BILIRUBIN 2.2 mg/dL (0.0-0.3)
[2017-05-30 22:14] LABS: ALKALINE PHOSPHATASE 103 IU/L (3-129); TOTAL BILIRUBIN 3.2 MG/DL (0.0-1.0)
[2017-05-31] VITALS: BP 113/72
[2017-05-31 00:52] LABS: EOSINOPHIL (%) 0.5 % (0-5); HEMATOCRIT 30.3 % (38.0-50.0); IMMATURE GRANULOCYTE (%) 0.5 % (0.0-0.7); INSTRUMENT ABS NEUTROPHIL CT 6.7 K/uL; MCH 22.5 PG (29.0-34.0); MCV 68.1 FL (86-99); MONOCYTE (%) 3.5 % (3-12); MONOCYTE COUNT 0.3 K/uL (0-0.8); NEUTROPHIL (%) 82.6 % (45-76); NEUTROPHIL COUNT 6.7 K/uL (1.8-6.4); NRBC (%) 6.2 /100 WBC (0-0); PLATELET COUNT 126 K/uL (156-360); RBC DIS.WIDTH-CV 23.1 % (11.8-14.6); RED BLOOD COUNT 4.45 M/uL (4.00-5.50); WHITE BLOOD COUNT 8.1 K/uL (4.1-10.2)
[2017-05-31 00:53] LABS: CHLORIDE 107 mEq/L (99-109); POTASSIUM 4.5 mEq/L (3.7-5.4); SODIUM 139 mEq/L (136-147)
[2017-05-31 00:54] LABS: POINT-OF-CARE USER ID LABHNS84
[2017-05-31 00:55] LABS: GLUCOSE 143 mg/dL (70-99)
[2017-05-31 00:57] LABS: ANION GAP 12 MEQ/L (2-14)
[2017-05-31 00:59] LABS: GFR ESTIMATE (CALCULATED) > 59 mL/min/
[2017-05-31 01:00] LABS: UREA NITROGEN (BUN) 8 mg/dL (9-23)
[2017-05-31 05:46] LABS: ANION GAP 4 MEQ/L (2-14); CHLORIDE 108 MEQ/L (99-109); GFR ESTIMATE (CALCULATED) > 59 mL/min/; GLUCOSE 113 mg/dL (70-99); IRON 26 MCG/DL (35-150); POTASSIUM 4.3 MEQ/L (3.7-5.4); SAMPLE HEMOLYSIS CHECK 0; SAMPLE ICTERIC CHECK 0; SAMPLE LIPEMIA CHECK 0; SODIUM 138 MEQ/L (136-147); UREA NITROGEN (BUN) 8 mg/dL (9-23)
[2017-05-31 05:50] LABS: ALKALINE PHOSPHATASE 107 IU/L (3-129); ANION GAP 6 MEQ/L (2-14); CHLORIDE 108 MEQ/L (99-109); GFR ESTIMATE (CALCULATED) > 59 mL/min/; GLUCOSE 116 mg/dL (70-99); POTASSIUM 4.3 MEQ/L (3.7-5.4); SAMPLE HEMOLYSIS CHECK 0; SAMPLE ICTERIC CHECK 0; SAMPLE LIPEMIA CHECK 0; SODIUM 139 MEQ/L (136-147); TOTAL BILIRUBIN 2.8 MG/DL (0.0-1.0); UREA NITROGEN (BUN) 8 mg/dL (9-23)
[2017-05-31 06:20] LABS: EOSINOPHIL (%) 0.7 % (0-5); EOSINOPHIL COUNT 0.1 K/uL (0-0.3); HEMATOCRIT 29.2 % (38.0-50.0); IMMATURE GRANULOCYTE (%) 0.4 % (0.0-0.7); INSTRUMENT ABS NEUTROPHIL CT 5.9 K/uL; MCH 23.3 PG (29.0-34.0); MCHC 33.9 G/DL (30.0-36.0); MCV 68.9 FL (86-99); MONOCYTE COUNT 0.4 K/uL (0-0.8); NEUTROPHIL (%) 80.4 % (45-76); NEUTROPHIL COUNT 5.9 K/uL (1.8-6.4); NRBC (%) 6.7 /100 WBC (0-0); RBC DIS.WIDTH-CV 23.5 % (11.8-14.6); RBC DIS.WIDTH-SD 51.8 % (39-53); RED BLOOD COUNT 4.24 M/uL (4.00-5.50); WHITE BLOOD COUNT 7.3 K/uL (4.1-10.2)
[2017-05-31 06:28] LABS: PLAT.SUFFICIENCY DECREASED; PLATELET COUNT 116 K/uL (156-360)
[2017-05-31 07:00] VITALS: BP 113/72
[2017-05-31 08:00] VITALS: BP 113/72
[2017-05-31 10:00] VITALS: BP 93/60
[2017-05-31 12:02] LABS: HEMATOCRIT 28.7 % (38.0-50.0); MCH 22.5 PG (29.0-34.0); MCHC 32.8 G/DL (30.0-36.0); MCV 68.7 FL (86-99); RBC DIS.WIDTH-CV 23.1 % (11.8-14.6); RBC DIS.WIDTH-SD 51.1 % (39-53); RED BLOOD COUNT 4.18 M/uL (4.00-5.50); WHITE BLOOD COUNT 6.3 K/uL (4.1-10.2)
[2017-05-31 12:09] LABS: CHLORIDE 108 mEq/L (99-109); POTASSIUM 4.1 mEq/L (3.7-5.4); SODIUM 138 mEq/L (136-147)
[2017-05-31 12:14] LABS: GLUCOSE 111 mg/dL (70-99)
[2017-05-31 12:15] LABS: ANION GAP 10 MEQ/L (2-14)
[2017-05-31 12:17] LABS: GFR ESTIMATE (CALCULATED) > 59 mL/min/
[2017-05-31 12:29] LABS: UREA NITROGEN (BUN) 8 mg/dL (9-23)
[2017-05-31 12:42] LABS: ABS NEUTROPHIL COUNT 5.1; ACANTHOCYTES 1+; ANISOCYTOSIS 3+; BURR CELLS 2+; EOSINOPHIL ABS CT 0.1; EOSINOPHILS 0.9 % (0-5.0); HELMET CELLS 1+; HYPOCHROMASIA 2+; INSTRUMENT ABS NEUTROPHIL CT 5.1 K/uL; LYMPHOCYTES 14.9 % (15.0-45.0); MACROCYTES 3+; MICROCYTOSIS 1+; NUCLEATED RBC'S 16.7; PLAT.SUFFICIENCY DECREASED; PLATELET COUNT 89 K/uL (156-360); POIKILOCYTOSIS 3+; POLYCHROMASIA 1+; SCHISTOCYTES 1+; SEG.NEUTROPHILS 81.6 % (46.0-76.0); SPHEROCYTES 1+; TARGET CELLS 1+
[2017-05-31 14:45] LABS: Protein S, Free 41 % normal (57-171)
[2017-05-31 19:05] LABS: ANION GAP 8 MEQ/L (2-14); CHLORIDE 108 MEQ/L (99-109); POTASSIUM 4.3 MEQ/L (3.7-5.4); SAMPLE HEMOLYSIS CHECK 0; SAMPLE ICTERIC CHECK 0; SAMPLE LIPEMIA CHECK 0; SODIUM 139 MEQ/L (136-147)
[2017-05-31 19:11] LABS: GFR ESTIMATE (CALCULATED) > 59 mL/min/; GLUCOSE 94 mg/dL (70-99); UREA NITROGEN (BUN) 8 mg/dL (9-23)
[2017-05-31 23:37] LABS: POINT-OF-CARE METER ID UU14208751
[2017-06-01 00:39] LABS: POINT-OF-CARE METER ID UU14174217; POINT-OF-CARE USER ID LABHNS84
[2017-06-01 00:58] LABS: CHLORIDE 107 mEq/L (99-109); POTASSIUM 4.3 mEq/L (3.7-5.4); SODIUM 138 mEq/L (136-147)
[2017-06-01 01:02] LABS: ANION GAP 9 MEQ/L (2-14)
[2017-06-01 01:03] LABS: EOSINOPHIL (%) 1.4 % (0-5); EOSINOPHIL COUNT 0.1 K/uL (0-0.3); HEMATOCRIT 29.8 % (38.0-50.0); IMMATURE GRANULOCYTE (%) 0.6 % (0.0-0.7); INSTRUMENT ABS NEUTROPHIL CT 5.1 K/uL; LYMPHOCYTE COUNT 0.9 K/uL (1.0-2.8); MCH 22.7 PG (29.0-34.0); MCHC 33.2 G/DL (30.0-36.0); MCV 68.2 FL (86-99); MONOCYTE (%) 6.3 % (3-12); MONOCYTE COUNT 0.4 K/uL (0-0.8); NEUTROPHIL (%) 78.2 % (45-76); NEUTROPHIL COUNT 5.1 K/uL (1.8-6.4); PLATELET COUNT 95 K/uL (156-360); RBC DIS.WIDTH-CV 23.4 % (11.8-14.6); RBC DIS.WIDTH-SD 51.5 % (39-53); RED BLOOD COUNT 4.37 M/uL (4.00-5.50); WHITE BLOOD COUNT 6.5 K/uL (4.1-10.2)
[2017-06-01 01:04] LABS: GFR ESTIMATE (CALCULATED) > 59 mL/min/
[2017-06-01 01:05] LABS: UREA NITROGEN (BUN) 8 mg/dL (9-23)
[2017-06-01 01:45] LABS: GLUCOSE 95 mg/dL (70-99)
[2017-06-01 05:12] LABS: PTT 77.4 SEC (25-37)
[2017-06-01 05:14] LABS: EOSINOPHIL COUNT 0.1 K/uL (0-0.3); HEMATOCRIT 26.7 % (38.0-50.0); IMMATURE GRANULOCYTE (%) 0.5 % (0.0-0.7); INSTRUMENT ABS NEUTROPHIL CT 4.7 K/uL; LYMPHOCYTE COUNT 0.6 K/uL (1.0-2.8); MCH 22.1 PG (29.0-34.0); MCHC 32.6 G/DL (30.0-36.0); MCV 67.9 FL (86-99); MONOCYTE (%) 6.9 % (3-12); MONOCYTE COUNT 0.4 K/uL (0-0.8); NEUTROPHIL (%) 81.3 % (45-76); NEUTROPHIL COUNT 4.7 K/uL (1.8-6.4); NRBC (%) 4.5 /100 WBC (0-0); PLATELET COUNT 74 K/uL (156-360); RBC DIS.WIDTH-CV 22.8 % (11.8-14.6); RBC DIS.WIDTH-SD 50.6 % (39-53); RED BLOOD COUNT 3.93 M/uL (4.00-5.50); WHITE BLOOD COUNT 5.8 K/uL (4.1-10.2)
[2017-06-01 05:33] LABS: ANION GAP 8 MEQ/L (2-14); CHLORIDE 108 MEQ/L (99-109); POTASSIUM 4.3 MEQ/L (3.7-5.4); SAMPLE HEMOLYSIS CHECK 0; SAMPLE ICTERIC CHECK 0; SAMPLE LIPEMIA CHECK 0; SODIUM 138 MEQ/L (136-147)
[2017-06-01 05:42] LABS: GFR ESTIMATE (CALCULATED) > 59 mL/min/; GLUCOSE 103 mg/dL (70-99); UREA NITROGEN (BUN) 9 mg/dL (9-23)
[2017-06-01 05:52] LABS: ALKALINE PHOSPHATASE 98 IU/L (3-129); ANION GAP 9 MEQ/L (2-14); CHLORIDE 109 MEQ/L (99-109); GFR ESTIMATE (CALCULATED) > 59 mL/min/; GLUCOSE 102 mg/dL (70-99); POTASSIUM 4.3 MEQ/L (3.7-5.4); SAMPLE HEMOLYSIS CHECK 1; SAMPLE ICTERIC CHECK 0; SAMPLE LIPEMIA CHECK 0; SODIUM 139 MEQ/L (136-147); UREA NITROGEN (BUN) 9 mg/dL (9-23)
[2017-06-01 05:53] LABS: TOTAL BILIRUBIN 2.2 MG/DL (0.0-1.0)
[2017-06-01 07:56] LABS: INTER. NORMALIZED RATIO 1.8; PROTHROMBIN TIME 20.7 SEC (10.2-12.9)
[2017-06-01 12:52] LABS: EOSINOPHIL (%) 1.1 % (0-5); EOSINOPHIL COUNT 0.1 K/uL (0-0.3); HEMATOCRIT 26.9 % (38.0-50.0); IMMATURE GRANULOCYTE (%) 0.6 % (0.0-0.7); INSTRUMENT ABS NEUTROPHIL CT 5.6 K/uL; LYMPHOCYTE COUNT 0.9 K/uL (1.0-2.8); MCH 23.1 PG (29.0-34.0); MCHC 33.5 G/DL (30.0-36.0); MCV 69.2 FL (86-99); MONOCYTE (%) 7.5 % (3-12); MONOCYTE COUNT 0.5 K/uL (0-0.8); NEUTROPHIL (%) 78.1 % (45-76); NEUTROPHIL COUNT 5.6 K/uL (1.8-6.4); NRBC (%) 3.2 /100 WBC (0-0); RBC DIS.WIDTH-CV 24.1 % (11.8-14.6); RBC DIS.WIDTH-SD 54.5 % (39-53); RED BLOOD COUNT 3.89 M/uL (4.00-5.50); WHITE BLOOD COUNT 7.1 K/uL (4.1-10.2)
[2017-06-01 13:10] LABS: PLAT.SUFFICIENCY DECREASED; PLATELET COUNT 72 K/uL (156-360)
[2017-06-01 13:18] LABS: ANION GAP 5 MEQ/L (2-14); CHLORIDE 108 MEQ/L (99-109); GFR ESTIMATE (CALCULATED) > 59 mL/min/; GLUCOSE 108 mg/dL (70-99); POTASSIUM 4.9 MEQ/L (3.7-5.4); SAMPLE HEMOLYSIS CHECK 1; SAMPLE ICTERIC CHECK 0; SAMPLE LIPEMIA CHECK 0; SODIUM 138 MEQ/L (136-147); UREA NITROGEN (BUN) 10 mg/dL (9-23)
[2017-06-01 19:08] LABS: ANION GAP 9 MEQ/L (2-14); CHLORIDE 108 MEQ/L (99-109); GFR ESTIMATE (CALCULATED) > 59 mL/min/; GLUCOSE 103 mg/dL (70-99); POTASSIUM 4.3 MEQ/L (3.7-5.4); SAMPLE HEMOLYSIS CHECK 0; SAMPLE ICTERIC CHECK 0; SAMPLE LIPEMIA CHECK 0; SODIUM 139 MEQ/L (136-147); UREA NITROGEN (BUN) 11 mg/dL (9-23)
[2017-06-02 01:00] LABS: HEMATOCRIT 24.6 % (38.0-50.0); MCH 22.8 PG (29.0-34.0); MCHC 34.1 G/DL (30.0-36.0); MCV 66.8 FL (86-99); NRBC (%) 2.6 /100 WBC (0-0); RBC DIS.WIDTH-CV 22.6 % (11.8-14.6); RBC DIS.WIDTH-SD 49.1 % (39-53); RED BLOOD COUNT 3.68 M/uL (4.00-5.50); WHITE BLOOD COUNT 6.9 K/uL (4.1-10.2)
[2017-06-02 01:02] LABS: CHLORIDE 107 mEq/L (99-109); MAGNESIUM 2.1 mg/dL (1.3-2.7); POTASSIUM 4.4 mEq/L (3.7-5.4); SODIUM 139 mEq/L (136-147)
[2017-06-02 03:08] LABS: ALKALINE PHOSPHATASE 102 IU/L (3-129); ANION GAP 10 MEQ/L (2-14); GFR ESTIMATE (CALCULATED) > 59 mL/min/; GLUCOSE 104 mg/dL (70-99); TOTAL BILIRUBIN 2.1 MG/DL (0.0-1.0); UREA NITROGEN (BUN) 12 mg/dL (9-23)
[2017-06-02 03:31] LABS: ABS NEUTROPHIL COUNT 6.1; ANISOCYTOSIS 2+; BURR CELLS 2+; EOSINOPHIL ABS CT 0; INSTRUMENT ABS NEUTROPHIL CT 5.5 K/uL; LYMPHOCYTES 10.6 % (15.0-45.0); MACROCYTES 2+; NUCLEATED RBC'S 3.5; OVALOCYTES 1+; PLAT.SUFFICIENCY DECREASED; PLATELET COUNT 61 K/uL (156-360); POIKILOCYTOSIS 3+; POLYCHROMASIA 1+; SCHISTOCYTES 2+; SEG.NEUTROPHILS 88.5 % (46.0-76.0); TARGET CELLS 1+
[2017-06-02 08:55] LABS: EOSINOPHIL COUNT 0.1 K/uL (0-0.3); HEMATOCRIT 27.7 % (38.0-50.0); IMMATURE GRANULOCYTE (%) 0.4 % (0.0-0.7); INSTRUMENT ABS NEUTROPHIL CT 6.8 K/uL; LYMPHOCYTE COUNT 0.8 K/uL (1.0-2.8); MCH 23.9 PG (29.0-34.0); MCV 68.2 FL (86-99); MONOCYTE (%) 8.1 % (3-12); MONOCYTE COUNT 0.7 K/uL (0-0.8); NEUTROPHIL (%) 80.8 % (45-76); NEUTROPHIL COUNT 6.8 K/uL (1.8-6.4); NRBC (%) 1.9 /100 WBC (0-0); RBC DIS.WIDTH-CV 23.9 % (11.8-14.6); RBC DIS.WIDTH-SD 52.6 % (39-53); RED BLOOD COUNT 4.06 M/uL (4.00-5.50); WHITE BLOOD COUNT 8.4 K/uL (4.1-10.2)
[2017-06-02 09:01] LABS: ALKALINE PHOSPHATASE 101 IU/L (3-129); ANION GAP 6 MEQ/L (2-14); CHLORIDE 107 MEQ/L (99-109); GFR ESTIMATE (CALCULATED) > 59 mL/min/; GLUCOSE 91 mg/dL (70-99); MAGNESIUM 2.1 mg/dl (1.3-2.7); POTASSIUM 4.6 MEQ/L (3.7-5.4); SAMPLE HEMOLYSIS CHECK 1; SAMPLE ICTERIC CHECK 0; SAMPLE LIPEMIA CHECK 0; SODIUM 138 MEQ/L (136-147); TOTAL BILIRUBIN 2.3 MG/DL (0.0-1.0); UREA NITROGEN (BUN) 13 mg/dL (9-23)
[2017-06-02 09:16] LABS: PLAT.SUFFICIENCY DECREASED; PLATELET COUNT 60 K/uL (156-360)
[2017-06-02 15:51] LABS: ALKALINE PHOSPHATASE 106 IU/L (3-129); ANION GAP 6 MEQ/L (2-14); CHLORIDE 107 MEQ/L (99-109); GFR ESTIMATE (CALCULATED) > 59 mL/min/; MAGNESIUM 2.1 mg/dl (1.3-2.7); POTASSIUM 4.4 MEQ/L (3.7-5.4); SAMPLE HEMOLYSIS CHECK 0; SAMPLE ICTERIC CHECK 0; SAMPLE LIPEMIA CHECK 0; SODIUM 137 MEQ/L (136-147); TOTAL BILIRUBIN 2.2 MG/DL (0.0-1.0); UREA NITROGEN (BUN) 13 mg/dL (9-23)
[2017-06-02 16:01] LABS: GLUCOSE 118 mg/dL (70-99)
[2017-06-02 16:57] LABS: EOSINOPHIL (%) 0.8 % (0-5); EOSINOPHIL COUNT 0.1 K/uL (0-0.3); HEMATOCRIT 28.2 % (38.0-50.0); HEMATOLOGY COMMENT 1 SN; IMMATURE GRANULOCYTE (%) 0.8 % (0.0-0.7); IMMATURE GRANULOCYTE COUNT 0.1 K/uL; LYMPHOCYTE COUNT 0.9 K/uL (1.0-2.8); MCH 22.9 PG (29.0-34.0); MCHC 33.7 G/DL (30.0-36.0); MCV 68.1 FL (86-99); MONOCYTE (%) 8.6 % (3-12); MONOCYTE COUNT 0.8 K/uL (0-0.8); NEUTROPHIL (%) 79.6 % (45-76); NRBC (%) 1.5 /100 WBC (0-0); PLAT.SUFFICIENCY DECREASED; RBC DIS.WIDTH-CV 23.7 % (11.8-14.6); RBC DIS.WIDTH-SD 53.7 % (39-53); RED BLOOD COUNT 4.14 M/uL (4.00-5.50); WHITE BLOOD COUNT 8.8 K/uL (4.1-10.2)
[2017-06-02 16:58] LABS: PLATELET COUNT 58 K/uL (156-360)
[2017-06-02 20:30] LABS: ALKALINE PHOSPHATASE 125 IU/L (3-129); ANION GAP 7 MEQ/L (2-14); CHLORIDE 107 MEQ/L (99-109); GFR ESTIMATE (CALCULATED) > 59 mL/min/; GLUCOSE 153 mg/dL (70-99); MAGNESIUM 2.1 mg/dl (1.3-2.7); POTASSIUM 4.3 MEQ/L (3.7-5.4); SAMPLE HEMOLYSIS CHECK 0; SAMPLE ICTERIC CHECK 0; SAMPLE LIPEMIA CHECK 0; SODIUM 137 MEQ/L (136-147); TOTAL BILIRUBIN 2.2 MG/DL (0.0-1.0); UREA NITROGEN (BUN) 14 mg/dL (9-23)
[2017-06-02 21:07] LABS: EOSINOPHIL (%) 0.6 % (0-5); EOSINOPHIL COUNT 0.1 K/uL (0-0.3); HEMATOCRIT 26.9 % (38.0-50.0); HEMATOLOGY COMMENT 1 SN; IMMATURE GRANULOCYTE (%) 0.8 % (0.0-0.7); IMMATURE GRANULOCYTE COUNT 0.1 K/uL; INSTRUMENT ABS NEUTROPHIL CT 7.2 K/uL; LYMPHOCYTE COUNT 0.8 K/uL (1.0-2.8); MCH 23.8 PG (29.0-34.0); MCHC 34.9 G/DL (30.0-36.0); MCV 68.1 FL (86-99); MONOCYTE (%) 8.3 % (3-12); MONOCYTE COUNT 0.7 K/uL (0-0.8); NEUTROPHIL (%) 81.6 % (45-76); NEUTROPHIL COUNT 7.2 K/uL (1.8-6.4); NRBC (%) 1.5 /100 WBC (0-0); PLAT.SUFFICIENCY DECREASED; RBC DIS.WIDTH-CV 23.9 % (11.8-14.6); RBC DIS.WIDTH-SD 52.8 % (39-53); RED BLOOD COUNT 3.95 M/uL (4.00-5.50); WHITE BLOOD COUNT 8.8 K/uL (4.1-10.2)
[2017-06-02 21:08] LABS: PLATELET COUNT 55 K/uL (156-360)
[2017-06-03 02:32] LABS: CHLORIDE 106 mEq/L (99-109); SODIUM 138 mEq/L (136-147)
[2017-06-03 02:35] LABS: EOSINOPHIL (%) 0.7 % (0-5); EOSINOPHIL COUNT 0.1 K/uL (0-0.3); HEMATOCRIT 26.9 % (38.0-50.0); IMMATURE GRANULOCYTE (%) 0.8 % (0.0-0.7); IMMATURE GRANULOCYTE COUNT 0.1 K/uL; INSTRUMENT ABS NEUTROPHIL CT 7.1 K/uL; LYMPHOCYTE COUNT 0.8 K/uL (1.0-2.8); MCH 22.9 PG (29.0-34.0); MCHC 34.2 G/DL (30.0-36.0); MCV 67.1 FL (86-99); MONOCYTE COUNT 0.8 K/uL (0-0.8); NEUTROPHIL (%) 80.9 % (45-76); NEUTROPHIL COUNT 7.1 K/uL (1.8-6.4); NRBC (%) 1.4 /100 WBC (0-0); PLATELET COUNT 73 K/uL (156-360); RBC DIS.WIDTH-CV 23.4 % (11.8-14.6); RBC DIS.WIDTH-SD 50.5 % (39-53); RED BLOOD COUNT 4.01 M/uL (4.00-5.50); WHITE BLOOD COUNT 8.8 K/uL (4.1-10.2)
[2017-06-03 02:35] LABS: GLUCOSE 136 mg/dL (70-99)
[2017-06-03 02:36] LABS: ANION GAP 8 MEQ/L (2-14)
[2017-06-03 02:38] LABS: ALKALINE PHOSPHATASE 146 IU/L (3-129)
[2017-06-03 02:39] LABS: GFR ESTIMATE (CALCULATED) > 59 mL/min/
[2017-06-03 02:40] LABS: UREA NITROGEN (BUN) 14 mg/dL (9-23)
[2017-06-03 05:56] LABS: EOSINOPHIL (%) 0.7 % (0-5); EOSINOPHIL COUNT 0.1 K/uL (0-0.3); HEMATOCRIT 28.2 % (38.0-50.0); IMMATURE GRANULOCYTE (%) 0.7 % (0.0-0.7); IMMATURE GRANULOCYTE COUNT 0.1 K/uL; INSTRUMENT ABS NEUTROPHIL CT 6.7 K/uL; LYMPHOCYTE COUNT 0.9 K/uL (1.0-2.8); MCH 23.2 PG (29.0-34.0); MCHC 34.4 G/DL (30.0-36.0); MCV 67.3 FL (86-99); NEUTROPHIL (%) 77.1 % (45-76); NEUTROPHIL COUNT 6.7 K/uL (1.8-6.4); NRBC (%) 1.3 /100 WBC (0-0); RBC DIS.WIDTH-CV 23.7 % (11.8-14.6); RBC DIS.WIDTH-SD 51.2 % (39-53); RED BLOOD COUNT 4.19 M/uL (4.00-5.50); WHITE BLOOD COUNT 8.7 K/uL (4.1-10.2)
[2017-06-03 06:21] LABS: PLAT.SUFFICIENCY DECREASED; PLATELET COUNT 53 K/uL (156-360)
[2017-06-03 06:36] LABS: ALKALINE PHOSPHATASE 132 IU/L (3-129); ANION GAP 4 MEQ/L (2-14); CHLORIDE 105 MEQ/L (99-109); GFR ESTIMATE (CALCULATED) > 59 mL/min/; MAGNESIUM 2.2 mg/dl (1.3-2.7); POTASSIUM 4.3 MEQ/L (3.7-5.4); SAMPLE HEMOLYSIS CHECK 1; SAMPLE ICTERIC CHECK 0; SAMPLE LIPEMIA CHECK 0; SODIUM 137 MEQ/L (136-147); UREA NITROGEN (BUN) 14 mg/dL (9-23)
[2017-06-03 06:40] LABS: GLUCOSE 76 mg/dL (70-99); VANCOMYCIN, TROUGH 2.9 MCG/ML (10-20)
[2017-06-03 08:41] LABS: HEMATOCRIT 28.3 % (38.0-50.0); MCH 22.6 PG (29.0-34.0); MCHC 33.2 G/DL (30.0-36.0); NRBC (%) 1.2 /100 WBC (0-0); RBC DIS.WIDTH-CV 23.6 % (11.8-14.6); RBC DIS.WIDTH-SD 51.4 % (39-53); RED BLOOD COUNT 4.16 M/uL (4.00-5.50); WHITE BLOOD COUNT 8.8 K/uL (4.1-10.2)
[2017-06-03 09:08] LABS: EOSINOPHIL (%) 1.1 % (0-5); EOSINOPHIL COUNT 0.1 K/uL (0-0.3); IMMATURE GRANULOCYTE COUNT 0.1 K/uL; INSTRUMENT ABS NEUTROPHIL CT 6.9 K/uL; LYMPHOCYTE COUNT 0.9 K/uL (1.0-2.8); MONOCYTE (%) 9.9 % (3-12); MONOCYTE COUNT 0.9 K/uL (0-0.8); NEUTROPHIL COUNT 6.9 K/uL (1.8-6.4)
[2017-06-03 09:24] LABS: PLATELET COUNT 48 K/uL (156-360)
[2017-06-03 09:45] LABS: ALKALINE PHOSPHATASE 141 IU/L (3-129); ANION GAP 6 MEQ/L (2-14); CHLORIDE 107 MEQ/L (99-109); GFR ESTIMATE (CALCULATED) > 59 mL/min/; MAGNESIUM 2.1 mg/dl (1.3-2.7); POTASSIUM 4.1 MEQ/L (3.7-5.4); SAMPLE HEMOLYSIS CHECK 0; SAMPLE ICTERIC CHECK 0; SAMPLE LIPEMIA CHECK 0; SODIUM 139 MEQ/L (136-147); TOTAL BILIRUBIN 2.1 MG/DL (0.0-1.0); UREA NITROGEN (BUN) 14 mg/dL (9-23)
[2017-06-03 09:47] LABS: GLUCOSE 120 mg/dL (70-99)
[2017-06-03 14:06] LABS: Heparin Induced Plt Ab Negative (Negative)
[2017-06-03 14:48] LABS: ALKALINE PHOSPHATASE 129 IU/L (3-129); ANION GAP 7 MEQ/L (2-14); CHLORIDE 107 MEQ/L (99-109); GFR ESTIMATE (CALCULATED) > 59 mL/min/; GLUCOSE 130 mg/dL (70-99); SAMPLE HEMOLYSIS CHECK 1; SAMPLE ICTERIC CHECK 0; SAMPLE LIPEMIA CHECK 0; SODIUM 138 MEQ/L (136-147); TOTAL BILIRUBIN 1.8 MG/DL (0.0-1.0); UREA NITROGEN (BUN) 14 mg/dL (9-23)
[2017-06-03 15:54] LABS: ANISOCYTOSIS 3+; BURR CELLS 1+; EOSINOPHIL (%) 0.7 % (0-5); EOSINOPHIL COUNT 0.1 K/uL (0-0.3); HEMATOCRIT 27.4 % (38.0-50.0); HYPOCHROMASIA 2+; IMMATURE GRANULOCYTE (%) 0.6 % (0.0-0.7); IMMATURE GRANULOCYTE COUNT 0.1 K/uL; INSTRUMENT ABS NEUTROPHIL CT 6.3 K/uL; LYMPHOCYTE COUNT 0.7 K/uL (1.0-2.8); MACROCYTES 2+; MCHC 33.9 G/DL (30.0-36.0); MCV 67.8 FL (86-99); MICROCYTOSIS 1+; MONOCYTE (%) 11.3 % (3-12); MONOCYTE COUNT 0.9 K/uL (0-0.8); NEUTROPHIL COUNT 6.3 K/uL (1.8-6.4); NRBC (%) 1.1 /100 WBC (0-0); PLAT.SUFFICIENCY DECREASED; POIKILOCYTOSIS 3+; POLYCHROMASIA 1+; RBC DIS.WIDTH-CV 23.8 % (11.8-14.6); RBC DIS.WIDTH-SD 51.7 % (39-53); RED BLOOD COUNT 4.04 M/uL (4.00-5.50); SCHISTOCYTES 1+; TARGET CELLS 2+; WHITE BLOOD COUNT 8.1 K/uL (4.1-10.2)
[2017-06-03 15:57] LABS: POTASSIUM 4.2 MEQ/L (3.7-5.4)
[2017-06-03 19:27] LABS: PLATELET COUNT 50 K/uL (156-360)
[2017-06-03 20:36] LABS: EOSINOPHIL (%) 1.1 % (0-5); EOSINOPHIL COUNT 0.1 K/uL (0-0.3); IMMATURE GRANULOCYTE (%) 0.8 % (0.0-0.7); IMMATURE GRANULOCYTE COUNT 0.1 K/uL; INSTRUMENT ABS NEUTROPHIL CT 6.8 K/uL; LYMPHOCYTE COUNT 0.7 K/uL (1.0-2.8); MCH 23.3 PG (29.0-34.0); MCHC 34.4 G/DL (30.0-36.0); MCV 67.7 FL (86-99); MONOCYTE (%) 10.9 % (3-12); MONOCYTE COUNT 0.9 K/uL (0-0.8); NEUTROPHIL (%) 79.5 % (45-76); NEUTROPHIL COUNT 6.8 K/uL (1.8-6.4); NRBC (%) 1.1 /100 WBC (0-0); RBC DIS.WIDTH-CV 23.9 % (11.8-14.6); RBC DIS.WIDTH-SD 52.3 % (39-53); RED BLOOD COUNT 3.99 M/uL (4.00-5.50); WHITE BLOOD COUNT 8.5 K/uL (4.1-10.2)
[2017-06-03 20:53] LABS: ALKALINE PHOSPHATASE 126 IU/L (3-129); ANION GAP 8 MEQ/L (2-14); CHLORIDE 107 MEQ/L (99-109); GFR ESTIMATE (CALCULATED) > 59 mL/min/; GLUCOSE 151 mg/dL (70-99); POTASSIUM 4.4 MEQ/L (3.7-5.4); SAMPLE HEMOLYSIS CHECK 0; SAMPLE ICTERIC CHECK 0; SAMPLE LIPEMIA CHECK 0; SODIUM 138 MEQ/L (136-147); TOTAL BILIRUBIN 1.8 MG/DL (0.0-1.0); UREA NITROGEN (BUN) 15 mg/dL (9-23)
[2017-06-03 21:00] LABS: ANISOCYTOSIS 3+; BURR CELLS 1+; HYPOCHROMASIA 2+; MACROCYTES 3+; MICROCYTOSIS 1+; OVALOCYTES 1+; PLATELET CLUMPS PRESENT - PLATELET COUNTS APPEARS DECREASED; POIKILOCYTOSIS 3+; POLYCHROMASIA 1+; SCHISTOCYTES 1+; TARGET CELLS 2+; TEAR DROP CELLS 1+
[2017-06-03 21:01] LABS: PLAT.SUFFICIENCY VERY DECREASED
[2017-06-03 21:22] LABS: PLATELET COUNT UNABLE TO REPORT K/uL (156-360)
[2017-06-03 22:56] LABS: Heparin Induced Plt Ab Negative (Negative)
[2017-06-04] VITALS (8 sets, daily range): BP systolic 84–97; BP diastolic 51–57
[2017-06-04 02:45] LABS: HEMATOCRIT 26.7 % (38.0-50.0); MCH 22.4 PG (29.0-34.0); MCHC 33.7 G/DL (30.0-36.0); MCV 66.4 FL (86-99); NRBC (%) 0.7 /100 WBC (0-0); RBC DIS.WIDTH-CV 23.4 % (11.8-14.6); RED BLOOD COUNT 4.02 M/uL (4.00-5.50); WHITE BLOOD COUNT 8.7 K/uL (4.1-10.2)
[2017-06-04 02:46] LABS: CHLORIDE 109 mEq/L (99-109); POTASSIUM 4.7 mEq/L (3.7-5.4); SODIUM 139 mEq/L (136-147)
[2017-06-04 02:58] LABS: MAGNESIUM 2.3 mg/dL (1.3-2.7)
[2017-06-04 03:00] LABS: GLUCOSE 147 mg/dL (70-99)
[2017-06-04 03:01] LABS: ANION GAP 5 MEQ/L (2-14); EOSINOPHIL (%) 0.9 % (0-5); EOSINOPHIL COUNT 0.1 K/uL (0-0.3); IMM.PLATELET FRACTION 15.1 (1-7); IMMATURE GRANULOCYTE (%) 0.7 % (0.0-0.7); IMMATURE GRANULOCYTE COUNT 0.1 K/uL; INSTRUMENT ABS NEUTROPHIL CT 6.9 K/uL; LYMPHOCYTE COUNT 0.7 K/uL (1.0-2.8); MONOCYTE (%) 10.9 % (3-12); NEUTROPHIL COUNT 6.9 K/uL (1.8-6.4); PLAT.SUFFICIENCY VERY DECREASED; PLATELET COUNT 55 K/uL (156-360)
[2017-06-04 03:02] LABS: TOTAL BILIRUBIN 1.8 mg/dL (0.0-1.0)
[2017-06-04 03:03] LABS: ALKALINE PHOSPHATASE 147 IU/L (3-129)
[2017-06-04 03:04] LABS: GFR ESTIMATE (CALCULATED) > 59 mL/min/
[2017-06-04 03:05] LABS: UREA NITROGEN (BUN) 15 mg/dL (9-23)
[2017-06-04 08:32] LABS: EOSINOPHIL (%) 0.9 % (0-5); EOSINOPHIL COUNT 0.1 K/uL (0-0.3); HEMATOCRIT 28.6 % (38.0-50.0); IMMATURE GRANULOCYTE (%) 0.5 % (0.0-0.7); IMMATURE GRANULOCYTE COUNT 0.1 K/uL; INSTRUMENT ABS NEUTROPHIL CT 6.7 K/uL; LYMPHOCYTE COUNT 1.1 K/uL (1.0-2.8); MCH 22.7 PG (29.0-34.0); MCHC 33.6 G/DL (30.0-36.0); MCV 67.8 FL (86-99); MONOCYTE COUNT 1.2 K/uL (0-0.8); NEUTROPHIL (%) 72.9 % (45-76); NEUTROPHIL COUNT 6.7 K/uL (1.8-6.4); NRBC (%) 0.7 /100 WBC (0-0); PLATELET COUNT 58 K/uL (156-360); RBC DIS.WIDTH-CV 24.4 % (11.8-14.6); RBC DIS.WIDTH-SD 52.3 % (39-53); RED BLOOD COUNT 4.22 M/uL (4.00-5.50); WHITE BLOOD COUNT 9.1 K/uL (4.1-10.2)
[2017-06-04 13:17] LABS: ALKALINE PHOSPHATASE 144 IU/L (3-129); ANION GAP 7 MEQ/L (2-14); CHLORIDE 108 MEQ/L (99-109); GFR ESTIMATE (CALCULATED) > 59 mL/min/; GLUCOSE 111 mg/dL (70-99); MAGNESIUM 2.1 mg/dl (1.3-2.7); POTASSIUM 4.5 MEQ/L (3.7-5.4); SAMPLE HEMOLYSIS CHECK 0; SAMPLE ICTERIC CHECK 0; SAMPLE LIPEMIA CHECK 0; SODIUM 139 MEQ/L (136-147); TOTAL BILIRUBIN 1.7 MG/DL (0.0-1.0); UREA NITROGEN (BUN) 16 mg/dL (9-23)
[2017-06-04 13:59] LABS: PLT AB:HLA CLASS I Negative (Negative); Plt Ab:GP IIb/IIIa Negative (Negative); Plt Ab:GP Ia/IIa Negative (Negative); Plt Ab:GP Ib/IX Negative (Negative)
[2017-06-04 15:28] LABS: UFH SRA Result Negative (Negative)
[2017-06-04 15:28] LABS: UFH SRA Result Indeterminate (Negative)
[2017-06-05] VITALS (14 sets, daily range): BP systolic 75–119; BP diastolic 47–79
[2017-06-05 06:01] LABS: EOSINOPHIL (%) 1.3 % (0-5); EOSINOPHIL COUNT 0.1 K/uL (0-0.3); HEMATOCRIT 23.4 % (38.0-50.0); IMMATURE GRANULOCYTE (%) 0.6 % (0.0-0.7); INSTRUMENT ABS NEUTROPHIL CT 4.9 K/uL; LYMPHOCYTE COUNT 0.9 K/uL (1.0-2.8); MCH 22.6 PG (29.0-34.0); MCHC 33.8 G/DL (30.0-36.0); MCV 66.9 FL (86-99); MONOCYTE (%) 14.5 % (3-12); NEUTROPHIL (%) 70.3 % (45-76); NEUTROPHIL COUNT 4.9 K/uL (1.8-6.4); NRBC (%) 0.6 /100 WBC (0-0); PLATELET COUNT 51 K/uL (156-360); RBC DIS.WIDTH-CV 23.7 % (11.8-14.6); RBC DIS.WIDTH-SD 51.9 % (39-53); WHITE BLOOD COUNT 6.9 K/uL (4.1-10.2)
[2017-06-05 07:02] LABS: ALKALINE PHOSPHATASE 116 IU/L (3-129); ANION GAP 6 MEQ/L (2-14); CHLORIDE 107 MEQ/L (99-109); GLUCOSE 112 mg/dL (70-99); POTASSIUM 4.2 MEQ/L (3.7-5.4); SAMPLE HEMOLYSIS CHECK 0; SAMPLE ICTERIC CHECK 0; SAMPLE LIPEMIA CHECK 0; SODIUM 139 MEQ/L (136-147)
[2017-06-05 07:03] LABS: GFR ESTIMATE (CALCULATED) > 59 mL/min/; UREA NITROGEN (BUN) 32 mg/dL (9-23)
[2017-06-05 07:04] LABS: TOTAL BILIRUBIN 1.3 MG/DL (0.0-1.0)
[2017-06-05 19:42] LABS: ANION GAP 11 MEQ/L (2-14); CHLORIDE 104 MEQ/L (99-109); GFR ESTIMATE (CALCULATED) 55 mL/min/; GLUCOSE 86 mg/dL (70-99); SAMPLE HEMOLYSIS CHECK 1; SAMPLE ICTERIC CHECK 0; SAMPLE LIPEMIA CHECK 0; SODIUM 138 MEQ/L (136-147); UREA NITROGEN (BUN) 42 mg/dL (9-23)
[2017-06-05 19:43] LABS: POTASSIUM ND MEQ/L (3.7-5.4)
[2017-06-05 20:20] LABS: POTASSIUM 4.4 MEQ/L (3.7-5.4)
[2017-06-05 23:31] LABS: INTER. NORMALIZED RATIO 2.2; PROTHROMBIN TIME 24.7 SEC (10.2-12.9)
[2017-06-05 23:34] LABS: EOSINOPHIL (%) 0.1 % (0-5); HEMATOCRIT 25.6 % (38.0-50.0); IMMATURE GRANULOCYTE (%) 0.6 % (0.0-0.7); IMMATURE GRANULOCYTE COUNT 0.1 K/uL; INSTRUMENT ABS NEUTROPHIL CT 6.2 K/uL; LYMPHOCYTE COUNT 1.4 K/uL (1.0-2.8); MCH 22.3 PG (29.0-34.0); MCV 65.5 FL (86-99); MONOCYTE (%) 13.6 % (3-12); MONOCYTE COUNT 1.2 K/uL (0-0.8); NEUTROPHIL (%) 70.1 % (45-76); NEUTROPHIL COUNT 6.2 K/uL (1.8-6.4); NRBC (%) 0.2 /100 WBC (0-0); PLATELET COUNT 78 K/uL (156-360); PTT 66.3 SEC (25-37); RBC DIS.WIDTH-CV 23.3 % (11.8-14.6); RBC DIS.WIDTH-SD 50.2 % (39-53); RED BLOOD COUNT 3.91 M/uL (4.00-5.50); WHITE BLOOD COUNT 8.8 K/uL (4.1-10.2)
[2017-06-06] VITALS (19 sets, daily range): BP systolic 112–141; BP diastolic 75–88
[2017-06-06 04:59] LABS: INTER. NORMALIZED RATIO 1.7; PROTHROMBIN TIME 19.3 SEC (10.2-12.9)
[2017-06-06 05:02] LABS: PTT 53.4 SEC (25-37)
[2017-06-06 05:06] LABS: EOSINOPHIL (%) 0.1 % (0-5); HEMATOCRIT 24.6 % (38.0-50.0); IMMATURE GRANULOCYTE (%) 0.4 % (0.0-0.7); INSTRUMENT ABS NEUTROPHIL CT 6.1 K/uL; LYMPHOCYTE COUNT 1.6 K/uL (1.0-2.8); MCH 22.2 PG (29.0-34.0); MCHC 33.7 G/DL (30.0-36.0); MCV 65.8 FL (86-99); MONOCYTE (%) 13.3 % (3-12); MONOCYTE COUNT 1.2 K/uL (0-0.8); NEUTROPHIL (%) 68.7 % (45-76); NEUTROPHIL COUNT 6.1 K/uL (1.8-6.4); NRBC (%) 0.2 /100 WBC (0-0); RBC DIS.WIDTH-CV 23.2 % (11.8-14.6); RBC DIS.WIDTH-SD 49.9 % (39-53); RED BLOOD COUNT 3.74 M/uL (4.00-5.50); WHITE BLOOD COUNT 8.9 K/uL (4.1-10.2)
[2017-06-06 05:13] LABS: CHLORIDE 105 mEq/L (99-109); POTASSIUM 4.1 mEq/L (3.7-5.4); SODIUM 143 mEq/L (136-147)
[2017-06-06 05:16] LABS: GLUCOSE 70 mg/dL (70-99)
[2017-06-06 05:17] LABS: ANION GAP 13 MEQ/L (2-14); MAGNESIUM 1.8 mg/dL (1.3-2.7)
[2017-06-06 05:19] LABS: TOTAL BILIRUBIN 2.2 mg/dL (0.0-1.0)
[2017-06-06 05:21] LABS: UREA NITROGEN (BUN) 52 mg/dL (9-23)
[2017-06-06 05:30] LABS: ALKALINE PHOSPHATASE 110 IU/L (3-129); GFR ESTIMATE (CALCULATED) 40 mL/min/
[2017-06-06 05:49] LABS: PLAT.SUFFICIENCY DECREASED
[2017-06-06 05:50] LABS: PLATELET COUNT 122 K/uL (156-360)
[2017-06-06 08:51] LABS: ANION GAP 14 MEQ/L (2-14); CHLORIDE 103 MEQ/L (99-109); POTASSIUM 4.3 MEQ/L (3.7-5.4); SAMPLE HEMOLYSIS CHECK 0; SAMPLE ICTERIC CHECK 0; SAMPLE LIPEMIA CHECK 0; SODIUM 141 MEQ/L (136-147)
[2017-06-06 08:56] LABS: HEMATOCRIT 24.4 % (38.0-50.0); MCHC 34.8 G/DL (30.0-36.0); MCV 66.1 FL (86-99); NRBC (%) 0.2 /100 WBC (0-0); RBC DIS.WIDTH-CV 23.8 % (11.8-14.6); RED BLOOD COUNT 3.69 M/uL (4.00-5.50); WHITE BLOOD COUNT 8.7 K/uL (4.1-10.2)
[2017-06-06 08:58] LABS: GFR ESTIMATE (CALCULATED) 40 mL/min/; GLUCOSE 66 mg/dL (70-99); UREA NITROGEN (BUN) 53 mg/dL (9-23)
[2017-06-06 10:44] LABS: PLAT.SUFFICIENCY DECREASED; PLATELET COUNT 89 K/uL (156-360)
[2017-06-06 11:18] LABS: ADD MIUA? YES; BILIRUBIN NEGATIVE; BLOOD MODERATE; COLOR YELLOW ((YELLOW)); GLUCOSE (STRIP) NEGATIVE; KETONES NEGATIVE; LEUKOCYTES LARGE; NITRITE NEGATIVE; PROTEIN (STRIP) 30; SPECIFIC GRAVITY 1.008 (1.000-1.030); UROBILINOGEN 0.2 MG/DL (0.2-1.0)
[2017-06-06 11:52] LABS: BACTERIA RARE /HPF; BUDDING YEAST 4+; EPITHELIAL CELLS RARE /HPF; MUCUS TRACE /LPF; RED BLOOD CELLS 30-40 /HPF (0-5); UCUL ADDED? YES; WHITE BLOOD CELLS TNTC /HPF (0-5); WHITE BLOOD CELLS CLUMP MOD /HPF (0-5)
[2017-06-06 12:42] LABS: HEMATOCRIT 24.1 % (38.0-50.0); MCH 23.2 PG (29.0-34.0); MCHC 34.9 G/DL (30.0-36.0); MCV 66.6 FL (86-99); NRBC (%) 0.3 /100 WBC (0-0); PLATELET COUNT 109 K/uL (156-360); RBC DIS.WIDTH-CV 23.6 % (11.8-14.6); RBC DIS.WIDTH-SD 51.9 % (39-53); RED BLOOD COUNT 3.62 M/uL (4.00-5.50)
[2017-06-06 12:55] LABS: POINT-OF-CARE METER ID UU14162636; POINT-OF-CARE USER ID AGYTJR
[2017-06-06 16:58] LABS: ANION GAP 15 MEQ/L (2-14); CHLORIDE 103 MEQ/L (99-109); GFR ESTIMATE (CALCULATED) 36 mL/min/; POTASSIUM 4.1 MEQ/L (3.7-5.4); SAMPLE HEMOLYSIS CHECK 1; SAMPLE ICTERIC CHECK 0; SAMPLE LIPEMIA CHECK 0; SODIUM 141 MEQ/L (136-147); UREA NITROGEN (BUN) 55 mg/dL (9-23)
[2017-06-06 16:59] LABS: GLUCOSE 91 mg/dL (70-99)
[2017-06-06 17:50] LABS: HEMATOCRIT 24.7 % (38.0-50.0); MCH 22.2 PG (29.0-34.0); MCHC 33.2 G/DL (30.0-36.0); MCV 66.9 FL (86-99); NRBC (%) 0.2 /100 WBC (0-0); RBC DIS.WIDTH-CV 23.5 % (11.8-14.6); RBC DIS.WIDTH-SD 52.8 % (39-53); RED BLOOD COUNT 3.69 M/uL (4.00-5.50); WHITE BLOOD COUNT 8.3 K/uL (4.1-10.2)
[2017-06-06 17:54] LABS: PLAT.SUFFICIENCY ADEQUATE
[2017-06-06 19:55] LABS: HEMATOCRIT 24.1 % (38.0-50.0); MCH 23.3 PG (29.0-34.0); MCHC 34.9 G/DL (30.0-36.0); MCV 66.9 FL (86-99); RBC DIS.WIDTH-CV 23.3 % (11.8-14.6); WHITE BLOOD COUNT 8.2 K/uL (4.1-10.2)
[2017-06-06 21:08] LABS: PLATELET COUNT 132 K/uL (156-360)
[2017-06-06 21:25] LABS: PLATELET COUNT 180 K/uL (156-360)
[2017-06-07] VITALS (19 sets, daily range): BP systolic 113–140; BP diastolic 74–93
[2017-06-07 00:59] LABS: HEMATOCRIT 25.8 % (38.0-50.0); MCH 22.2 PG (29.0-34.0); MCHC 33.3 G/DL (30.0-36.0); MCV 66.7 FL (86-99); NRBC (%) 0.5 /100 WBC (0-0); PLATELET COUNT 130 K/uL (156-360); RBC DIS.WIDTH-CV 23.1 % (11.8-14.6); RBC DIS.WIDTH-SD 50.2 % (39-53); RED BLOOD COUNT 3.87 M/uL (4.00-5.50); WHITE BLOOD COUNT 8.7 K/uL (4.1-10.2)
[2017-06-07 06:11] LABS: INTER. NORMALIZED RATIO 1.6; PROTHROMBIN TIME 17.6 SEC (10.2-12.9)
[2017-06-07 06:14] LABS: PTT 32.5 SEC (25-37)
[2017-06-07 06:17] LABS: HEMATOCRIT 25.5 % (38.0-50.0); MCH 22.8 PG (29.0-34.0); MCHC 34.1 G/DL (30.0-36.0); MCV 66.8 FL (86-99); NRBC (%) 0.2 /100 WBC (0-0); PLATELET COUNT 130 K/uL (156-360); RBC DIS.WIDTH-CV 23.1 % (11.8-14.6); RBC DIS.WIDTH-SD 51.2 % (39-53); RED BLOOD COUNT 3.82 M/uL (4.00-5.50); WHITE BLOOD COUNT 8.5 K/uL (4.1-10.2)
[2017-06-07 06:19] LABS: EOSINOPHIL (%) 0.1 % (0-5); HEMATOCRIT 25.8 % (38.0-50.0); IMMATURE GRANULOCYTE (%) 0.4 % (0.0-0.7); INSTRUMENT ABS NEUTROPHIL CT 5.5 K/uL; LYMPHOCYTE COUNT 1.4 K/uL (1.0-2.8); MCH 22.4 PG (29.0-34.0); MCHC 33.7 G/DL (30.0-36.0); MCV 66.3 FL (86-99); MONOCYTE (%) 13.1 % (3-12); MONOCYTE COUNT 1.1 K/uL (0-0.8); NEUTROPHIL (%) 68.6 % (45-76); NEUTROPHIL COUNT 5.5 K/uL (1.8-6.4); NRBC (%) 0.2 /100 WBC (0-0); PLATELET COUNT 133 K/uL (156-360); RBC DIS.WIDTH-CV 23.4 % (11.8-14.6); RBC DIS.WIDTH-SD 51.8 % (39-53); RED BLOOD COUNT 3.89 M/uL (4.00-5.50); WHITE BLOOD COUNT 8.1 K/uL (4.1-10.2)
[2017-06-07 06:31] LABS: ANION GAP 20 MEQ/L (2-14); CHLORIDE 104 MEQ/L (99-109); GFR ESTIMATE (CALCULATED) 34 mL/min/; GLUCOSE 101 mg/dL (70-99); MAGNESIUM 1.9 mg/dl (1.3-2.7); POTASSIUM 3.7 MEQ/L (3.7-5.4); SAMPLE HEMOLYSIS CHECK 0; SAMPLE ICTERIC CHECK 0; SAMPLE LIPEMIA CHECK 0; SODIUM 146 MEQ/L (136-147); UREA NITROGEN (BUN) 60 mg/dL (9-23)
[2017-06-07 08:42] LABS: HEMATOCRIT 24.5 % (38.0-50.0); MCH 23.3 PG (29.0-34.0); MCHC 35.1 G/DL (30.0-36.0); MCV 66.4 FL (86-99); NRBC (%) 0.3 /100 WBC (0-0); RBC DIS.WIDTH-CV 23.6 % (11.8-14.6); RBC DIS.WIDTH-SD 51.6 % (39-53); RED BLOOD COUNT 3.69 M/uL (4.00-5.50); WHITE BLOOD COUNT 9.2 K/uL (4.1-10.2)
[2017-06-07 09:07] LABS: PLAT.SUFFICIENCY ADEQUATE; PLATELET COUNT 148 K/uL (156-360)
[2017-06-07 12:48] LABS: HEMATOCRIT 24.2 % (38.0-50.0); MCH 23.6 PG (29.0-34.0); MCHC 35.5 G/DL (30.0-36.0); MCV 66.3 FL (86-99); NRBC (%) 0.6 /100 WBC (0-0); PLATELET COUNT 163 K/uL (156-360); RBC DIS.WIDTH-CV 23.3 % (11.8-14.6); RBC DIS.WIDTH-SD 51.4 % (39-53); RED BLOOD COUNT 3.65 M/uL (4.00-5.50)
[2017-06-07 18:12] LABS: HEMATOCRIT 27.8 % (38.0-50.0); MCH 22.5 PG (29.0-34.0); MCHC 33.1 G/DL (30.0-36.0); MCV 68.1 FL (86-99); NRBC (%) 0.4 /100 WBC (0-0); RBC DIS.WIDTH-CV 23.6 % (11.8-14.6); RBC DIS.WIDTH-SD 52.7 % (39-53); RED BLOOD COUNT 4.08 M/uL (4.00-5.50); WHITE BLOOD COUNT 9.4 K/uL (4.1-10.2)
[2017-06-07 18:16] LABS: PLAT.SUFFICIENCY ADEQUATE; PLATELET COUNT 159 K/uL (156-360)
[2017-06-07 20:43] LABS: HEMATOCRIT 25.6 % (38.0-50.0); MCH 23.7 PG (29.0-34.0); MCHC 34.4 G/DL (30.0-36.0); MCV 68.8 FL (86-99); NRBC (%) 0.6 /100 WBC (0-0); PLATELET COUNT 195 K/uL (156-360); RBC DIS.WIDTH-CV 22.8 % (11.8-14.6); RBC DIS.WIDTH-SD 52.9 % (39-53); RED BLOOD COUNT 3.72 M/uL (4.00-5.50); WHITE BLOOD COUNT 10.4 K/uL (4.1-10.2)
[2017-06-08] VITALS (12 sets, daily range): BP systolic 101–128; BP diastolic 63–86
[2017-06-08 05:10] LABS: HEMATOCRIT 24.7 % (38.0-50.0); MCH 22.6 PG (29.0-34.0); MCV 66.6 FL (86-99); NRBC (%) 0.7 /100 WBC (0-0); PLATELET COUNT 206 K/uL (156-360); RBC DIS.WIDTH-CV 22.5 % (11.8-14.6); RBC DIS.WIDTH-SD 48.9 % (39-53); RED BLOOD COUNT 3.71 M/uL (4.00-5.50); WHITE BLOOD COUNT 10.7 K/uL (4.1-10.2)
[2017-06-08 05:13] LABS: EOSINOPHIL (%) 0 % (0-5); HEMATOCRIT 24.8 % (38.0-50.0); IMMATURE GRANULOCYTE (%) 0.6 % (0.0-0.7); IMMATURE GRANULOCYTE COUNT 0.1 K/uL; INSTRUMENT ABS NEUTROPHIL CT 8.1 K/uL; LYMPHOCYTE COUNT 1.2 K/uL (1.0-2.8); MCH 22.7 PG (29.0-34.0); MCHC 33.9 G/DL (30.0-36.0); MONOCYTE (%) 9.8 % (3-12); NEUTROPHIL (%) 77.6 % (45-76); NEUTROPHIL COUNT 8.1 K/uL (1.8-6.4); NRBC (%) 0.7 /100 WBC (0-0); PLATELET COUNT 211 K/uL (156-360); RBC DIS.WIDTH-CV 22.5 % (11.8-14.6); RBC DIS.WIDTH-SD 50.4 % (39-53); WHITE BLOOD COUNT 10.4 K/uL (4.1-10.2)
[2017-06-08 05:15] LABS: CHLORIDE 106 mEq/L (99-109); POTASSIUM 4.2 mEq/L (3.7-5.4); SODIUM 148 mEq/L (136-147)
[2017-06-08 05:16] LABS: MAGNESIUM 1.8 mg/dL (1.3-2.7)
[2017-06-08 05:18] LABS: GLUCOSE 96 mg/dL (70-99)
[2017-06-08 05:19] LABS: ANION GAP 25 MEQ/L (2-14)
[2017-06-08 05:22] LABS: UREA NITROGEN (BUN) 77 mg/dL (9-23)
[2017-06-08 05:45] LABS: GFR ESTIMATE (CALCULATED) 22 mL/min/
== END 2017-06-08 22:10 | DRG 870 ==
LOC: EME → EDBD 07:16 → EME 07:16 → EDOF 13:26 → 4WEST 13:26
PROVIDERS: Emergency Medicine; Internal Medicine Critical Care Medicine; Internal Medicine Nephrology; Internal Medicine Pulmonary Disease; Surgery
PROC: 5A1955Z Respiratory Ventilation, Greater than 96 Consecutive Hours (ICD-10-PCS; principal; 2017-05-28)
PROC: 05H633Z Insertion of Infusion Device into Left Subclavian Vein, Percutaneous Approach (ICD-10-PCS; principal; 2017-05-28)
PROC: 0BH17EZ Insertion of Endotracheal Airway into Trachea, Via Natural or Artificial Opening (ICD-10-PCS; principal; 2017-05-28)
PROC: 05HM33Z Insertion of Infusion Device into Right Internal Jugular Vein, Percutaneous Approach (ICD-10-PCS; 2017-05-29)
PROC: 30233L1 Transfusion of Nonautologous Fresh Plasma into Peripheral Vein, Percutaneous Approach (ICD-10-PCS; 2017-05-29)
DX: A41.9 Sepsis, unspecified organism (principal); J96.01 Acute respiratory failure with hypoxia; I26.99 Other pulmonary embolism without acute cor pulmonale; D68.59 Other primary thrombophilia; I50.20 Unspecified systolic (congestive) heart failure; E87.2 Acidosis; R65.20 Severe sepsis without septic shock; E83.51 Hypocalcemia; E83.39 Other disorders of phosphorus metabolism; Z79.01 Long term (current) use of anticoagulants; N17.0 Acute kidney failure with tubular necrosis; K72.00 Acute and subacute hepatic failure without coma; K92.2 Gastrointestinal hemorrhage, unspecified; D69.6 Thrombocytopenia, unspecified; J18.9 Pneumonia, unspecified organism; F14.10 Cocaine abuse, uncomplicated; I27.2 Other secondary pulmonary hypertension; N13.8 Other obstructive and reflux uropathy; J44.0 Chronic obstructive pulmonary disease with (acute) lower respiratory infection; E86.0 Dehydration; N40.1 Benign prostatic hyperplasia with lower urinary tract symptoms; D69.1 Qualitative platelet defects; R57.9 Shock, unspecified; I13.0 Hypertensive heart and chronic kidney disease with heart failure and stage 1 through stage 4 chronic kidney disease, or unspecified chronic kidney disease; N18.3 Chronic kidney disease, stage 3 (moderate); N14.1 Nephropathy induced by other drugs, medicaments and biological substances; R64 Cachexia; Z66 Do not resuscitate; D50.9 Iron deficiency anemia, unspecified; I47.2 Ventricular tachycardia; F17.210 Nicotine dependence, cigarettes, uncomplicated; F10.10 Alcohol abuse, uncomplicated; T50.8X5A Adverse effect of diagnostic agents, initial encounter; N28.0 Ischemia and infarction of kidney; B95.5 Unspecified streptococcus as the cause of diseases classified elsewhere; I25.5 Ischemic cardiomyopathy; I42.0 Dilated cardiomyopathy; E16.2 Hypoglycemia, unspecified; Z86.711 Personal history of pulmonary embolism; Z68.25 Body mass index [BMI] 25.0-25.9, adult; Z95.5 Presence of coronary angioplasty implant and graft; Z87.01 Personal history of pneumonia (recurrent); Z86.718 Personal history of other venous thrombosis and embolism; D64.9 Anemia, unspecified
CPT/HCPCS: 36600; 36620; 70450; 71010; 71275; 74000; 74177; 80048; 80048 91; 80053; 80069; 80076; 80202; 80306 90; 81003; 81241 90; 82150; 82330; 82550; 82550 91; 82553; 82570; 82803; 82948; 83540; 83605; 83690; 83735; 83880; 83930; 83935; 84100; 84156; 84300; 84466; 84484; 84999; 85025; 85025 91; 85027; 85303 90; 85305 90; 85306 90; 85384; 85610; 85730; 86022 90; 86038; 86147 90; 86703; 86705; 86803; 86900; 86901; 87040; 87070; 87077; 87086; 87106; 87186; 87205; 87340; 87641; 93005; 93306; 94002; 94003; 94640; 94640 76; 94760; 94799; 99202; 99281; 99285; C1788; C9113; G0480; J0171; J0610; J0692; J0696; J0883; J1250; J1644; J1815; J1940; J2250; J2704; J2765; J3010; J3370; J3475; J7030; J7042; J7050; J7070; P9017; P9045; P9047; S0028; S0030